=== PATIENT | male | born 1965 | race Caucasian/White ===

== ENCOUNTER → 2017-07-20 15:41 | Outpatient (CLI) | payer OTHER, SELFPAY ==
[2017-07-20 16:34] LABS: ALB/GLOB Ratio 1.1 RATIO (0.9-2.4); AST(SGOT) 18 U/L (15-37); Alanine Aminotransfer ALT/SGPT 25 U/L (16-61); Albumin, Serum 3.9 g/dL (3.2-5.0); Alkaline Phosphatase 45 U/L (45-117); Anion Gap 7 (5-15); BUN 23 mg/dL (7-18); BUN/Creat Ratio 29.1 RATIO (10-20); Chloride 103 mmol/L (98-107); Creatinine, Serum 0.79 mg/dL (0.70-1.30); EST Glomerular Filtration Rate 109 mL/min (>60); Est Glom Filt Rate - Afr Amer 132 mL/min (>60); Globulin 3.7 g/dL (2.2-4.2); Glucose 95 mg/dL (74-106); Protein, Total 7.6 g/dL (6.4-8.2); Sodium Level 139 mmol/L (136-145)
[2017-07-20 16:55] LABS: Microalbumin,Random Urine 15.5 mg/L (NO RANGE EST.); Microalbumin:Creatinine Ratio 17.2 mg/g CRE (<30 mg/g CRE)
[2017-07-22 15:00] LABS: PSA, Free 0.13 ng/mL; PSA, Free % 32.5 (.); PSA, Total Ultrasensitive 0.4 ng/mL (0.0-4.0)
== END ==
PROVIDERS: Family Provider Preventive Medicine Occupational Medicine; PCP Preventive Medicine Occupational Medicine; Visit Provider Preventive Medicine Occupational Medicine
DX: I10 Essential (primary) hypertension (principal); Z12.5 Encounter for screening for malignant neoplasm of prostate
CPT/HCPCS: 36415; 80053; 82043; 82570; 84153; 84154

== ENCOUNTER → 2017-08-09 13:11 | Outpatient (CLI) | payer OTHER, SELFPAY ==
--- NOTE | 2017-08-09 13:30 | RAD_ITS ---
STUDY: X-RAY - LEFT FOOT CLINICAL: Male, 52 years old. Follow-up stress fracture. TECHNIQUE: 3 view(s) of the foot. COMPARISON: 01/21/2017. FINDINGS: Previously described fracture of the proximal fourth metatarsal shaft shows nonunion with mild angulation and a more prominent fracture line indicating some distraction. There is some new bone formation. There is a new angulated nondisplaced fracture of the mid fifth metatarsal. Lateral view suggests some loss of plantar arch and there is a moderate plantar spur. Degenerative changes of the midfoot. 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 New mildly angulated nondisplaced fracture of the mid fifth metatarsal shaft. Electronically Signed: Alec Rutledge MD at 9:06 EDT , Service support ,
== END ==
PROVIDERS: Family Provider Preventive Medicine Occupational Medicine; PCP Preventive Medicine Occupational Medicine; Visit Provider Preventive Medicine Occupational Medicine
DX: M84.375G Stress fracture, left foot, subsequent encounter for fracture with delayed healing (principal)
CPT/HCPCS: 73630

== ENCOUNTER → 2018-08-08 14:48 | Outpatient (CLI) | payer OTHER, SELFPAY ==
[2018-08-08 16:11] LABS: ALB/GLOB Ratio 1.2 RATIO (0.9-2.4); AST(SGOT) 27 U/L (15-37); Alanine Aminotransfer ALT/SGPT 34 U/L (16-61); Albumin, Serum 4.2 g/dL (3.2-5.0); Alkaline Phosphatase 53 U/L (45-117); Anion Gap 7 (5-15); BUN 14 mg/dL (7-18); BUN/Creat Ratio 17.2 RATIO (10-20); Calcium,Total 8.9 mg/dL (8.5-10.1); Chloride 103 mmol/L (98-107); Creatinine, Serum 0.82 mg/dL (0.70-1.30); EST Glomerular Filtration Rate 105 mL/min (>60); Est Glom Filt Rate - Afr Amer 127 mL/min (>60); Globulin 3.6 g/dL (2.2-4.2); Glucose 92 mg/dL (74-106); Potassium 3.8 mmol/L (3.5-5.1); Protein, Total 7.8 g/dL (6.4-8.2); Sodium Level 141 mmol/L (136-145)
== END ==
PROVIDERS: Family Provider Preventive Medicine Occupational Medicine; PCP Preventive Medicine Occupational Medicine; Referring Provider Preventive Medicine Occupational Medicine; Visit Provider Preventive Medicine Occupational Medicine
DX: I10 Essential (primary) hypertension (principal)
CPT/HCPCS: 36415; 80053

== ENCOUNTER → 2018-11-09 10:01 | Outpatient (CLI) | payer OTHER, SELFPAY ==
--- NOTE | 2018-11-09 10:05 | RAD_ITS ---
STUDY: X-RAY CHEST REASON FOR EXAM: Male, 53 years old. Cough. Left-sided anterior rib pain. TECHNIQUE: PA and lateral views of the chest. COMPARISON: None. FINDINGS: Mild increased markings at the left lung base with blunting of the left costophrenic angle. This may represent the linear atelectasis. This is superimposed on mild scarring in both lungs. Normal size heart. Normal mediastinum and keiry. Normal visualized pulmonary arteries. There is atherosclerotic calcification of the aortic arch with tortuosity. There are diffuse degenerative changes of the visualized thoracic spine. Normal visualized ribs, clavicles, and shoulders. There is no demonstrated abnormality of the visualized soft tissue structures of the upper abdomen. RAD/Chest PA and Lateral IMPRESSION: Mild increased markings at the left lung base superimposed on chronic scarring. There is blunting of the left costophrenic angle. Follow-up is recommended. Electronically Signed: Vishnu Hatch, at 14:13 EDT , Service support ,
== END ==
PROVIDERS: Family Provider Preventive Medicine Occupational Medicine; PCP Preventive Medicine Occupational Medicine; Referring Provider Nurse Practitioner Family; Visit Provider Nurse Practitioner Family
DX: R05 Cough (principal)
CPT/HCPCS: 71046

== ENCOUNTER → 2019-02-09 09:56 | Outpatient (CLI) | payer OTHER, SELFPAY ==
--- NOTE | 2019-02-09 09:59 | RAD_ITS ---
STUDY: X-RAY CHEST REASON FOR EXAM: Male, 53 years old. Follow-up of prior abnormality TECHNIQUE: Two view of the chest were performed COMPARISON: 09 November 2018 FINDINGS: There are no regional opacities. There are coarsened interstitial markings. There is no pneumothorax, pulmonary edema, pleural effusions or cardiomegaly. Osseous structures are intact. There is no gas under the diaphragms. [ ] RAD/Chest PA and Lateral IMPRESSION: Abnormal interstitial markings, presumably interstitial disease. This appearance is nonspecific. Refer to pulmonary assessment and dedicated pulmonary protocol CT. Electronically Signed: Gio Alfaro, at 17:47 EDT Tel , Service support ,
== END ==
PROVIDERS: Family Provider Preventive Medicine Occupational Medicine; PCP Preventive Medicine Occupational Medicine; Referring Provider Preventive Medicine Occupational Medicine; Visit Provider Preventive Medicine Occupational Medicine
DX: J98.11 Atelectasis (principal)
CPT/HCPCS: 71046

== ENCOUNTER → 2019-02-23 07:18 | Outpatient (CLI) | payer OTHER, SELFPAY ==
--- NOTE | 2019-02-23 07:20 | CT_ITS ---
STUDY: CT CHEST WITHOUT CONTRAST REASON FOR EXAM: Male, 53 years old. Abnormal chest radiograph. RADIATION DOSAGE (If Supplied By Facility): CTDIvol = ( 14.80 ) mGy, DLP = ( 446.09 ) mGycm TECHNIQUE: Transaxial imaging was performed without the administration of intravenous contrast material. Individualized dose optimization techniques were used for this CT. COMPARISON: None. FINDINGS: Hyperinflation. Diffuse emphysematous changes with multiple subpleural blebs in both lungs worse in the upper lobes. There is also evidence of a bronchiectasis in the midportion of both lungs. Findings are in keeping with the predominantly right upper lobe scarring. This may be secondary to sarcoidosis or or chronic inhalational changes. There is no demonstrated pleural abnormality. There are calcifications of the coronary arteries. There are multiple small lymph nodes within the mediastinum, which are normal in size and morphology most compatible with reactive lymph hyperplasia. Normal hilar regions. Normal unenhanced pulmonary arteries. There is atherosclerotic calcification of the aortic arch with tortuosity and elongation of the aortic arch and descending thoracic aorta. There are multi-level degenerative changes of the thoracic spine. There is no demonstrated abnormality of the visualized upper abdomen. CT/Chest without Contrast IMPRESSION: Hyperinflation. Emphysematous changes with subpleural blebs worse in the upper lobes. Electronically Signed: Vishnu Hatch, at 10:48 EDT , Service support ,
== END ==
PROVIDERS: Family Provider Preventive Medicine Occupational Medicine; PCP Preventive Medicine Occupational Medicine; Referring Provider Preventive Medicine Occupational Medicine; Visit Provider Preventive Medicine Occupational Medicine
DX: R91.8 Other nonspecific abnormal finding of lung field (principal)
CPT/HCPCS: 71250

== ENCOUNTER 2019-03-01 09:52 | Emergency (ER) | payer OTHER, SELFPAY ==
[2019-03-01 09:55] VITALS: BP 175/113; PULSE 87; RESP 14; TEMP 36.3; O2SAT 98; BMI 32.5
[2019-03-01 10:09] VITALS: BP 194/105; PULSE 92; RESP 19; O2SAT 97
--- NOTE | 2019-03-01 10:37 | ED.DCSUM_ITS ---
- ER Visit Summary Date of Service: 03/01/19 Chief Complaint: Elevated blood pressure with history of hypertension History of Present Illness: The patient is a 53 M of hypertension currently on valsartan blood pressure medication and 60 mg daily. Normally runs 1 30-1 40 over around 80. He took his blood pressure yesterday because he was checking his son's blood pressure his was running 200 over about 110. He denies any symptoms. No headache, chest pain nor any shortness of breath. States he is feeling well. Physical Examination: Middle-aged male. No acute distress. Initial blood pressure 194/105. He does not look septic or toxic. He is in no distress. HEENT exam normal. Pupils round reactive light no facial droop. Lungs clear to auscultation bilaterally. Heart regular rhythm no murmur. Abdomen is soft and nontender. Normal bowel sounds no peritoneal signs. Extremities moves all 4. Calves are nontender. Equal symmetrical motor strength in both hands and feet. Neurologically is awake and alert with no focal motor deficits. NIH is 0. Test Results: None Emergency Department Course and Treatment: States typically his blood pressures while trolled with his current medication. We are going to hold off at this time making any changes. He will log his blood pressure twice daily follow-up with his primary care physician to see if they need to make any blood pressure medication adjustments or if they can stick with the current regime. Treatment Plan: Twice daily and follow-up with his PCP. Disposition: Discharge Impression: Acute on chronic hypertension This note was generated with [employer] dictation software. It may contain incorrect words, spelling, and punctuation that were not noted in review of the chart alfredoo r to signing ED Disposition - Plan for ED Patient: Referrals: Fazal España DO [Primary Care Provider] -
--- NOTE | 2019-03-01 10:40 | ED.DEP ---
ED Disposition - Plan for ED Patient: Disposition: Home or Assisted Living Instructions: HYPERTENSION, Established Referrals: Fazal España DO [Primary Care Provider] - As soon as possible Additional Instructions: Log your blood pressures twice daily over the next several days to 1 week. Call and follow-up with Dr. lowry next week and show him your blood pressure readings. At that time you when he can decide if you need to adjust your blood pressure medication, leave it alone or change the medication altogether.
[2019-03-01 10:43] VITALS: BP 185/110; PULSE 73; RESP 15; O2SAT 99
== END 2019-03-01 11:00 | disposition home or self-care (01) ==
LOC: ED 10:58
PROVIDERS: Emergency Provider Emergency Medicine; Family Provider Preventive Medicine Occupational Medicine; PCP Preventive Medicine Occupational Medicine
DX: I10 Essential (primary) hypertension (principal); J44.9 Chronic obstructive pulmonary disease, unspecified; Z72.0 Tobacco use
CPT/HCPCS: 99282

== ENCOUNTER 2019-03-28 20:45 | Emergency (ER) | payer OTHER, SELFPAY ==
[2019-03-28 20:46] VITALS: BP 155/111; PULSE 90; RESP 16; TEMP 36.3; O2SAT 97; BMI 31.7
--- NOTE | 2019-03-28 20:50 | RAD_ITS ---
STUDY: X-RAY - LEFT FOOT CLINICAL: Male, 53 years old. [place] a pop in the left foot while walking. History of 2 prior fractures. TECHNIQUE: 3 view(s) of the foot. COMPARISON: Left foot, August 09, 2017. FINDINGS: There is a plantar calcaneal spur. There is arthrosis of visualized subtalar, talonavicular, calcaneocuboid, tarsal and tarsometatarsal articulations. There is a healed fracture of the fifth tarsal. There is again seen a fracture of the base of the fourth metatarsal with osseous productivity suggesting healing. There remains a lucency in the possibility of an acute on chronic fracture cannot be ruled out. The first through third metacarpals are unremarkable. Normal metatarsophalangeal joint of the great toe. Normal tibial and fibular sesamoid bones. Normal interphalangeal joint of the great toe. Normal phalanges of the great toe. Normal second through fifth metatarsophalangeal joints. Normal interphalangeal joints and phalanges of the lesser toes. The soft tissue structures are unremarkable. RAD/Foot min 3 Views IMPRESSION: 1. Healed fracture of the fifth metacarpal. 2. Probable healed fracture fourth metacarpal. The possibility of acute on chronic fracture cannot be completely ruled out. 3. Degenerative changes of the foot.. Electronically Signed: Ortiz Castellano DO at 21:08 EDT Tel [phone], Service support ,
--- NOTE | 2019-03-28 23:00 | ED.DCSUM_ITS ---
- ER Visit Summary Date of Service: 03/28/19 Chief Complaint: Foot pain History of Present Illness: The patient is a 53 M with left foot pain. He was at work. He was walking felt a pop in his lateral left foot. Worse with use. Better with ice. He has a history of remote fractures to the area. Physical Examination: Inspection is unremarkable. He does have tenderness to his mid and distal fifth metatarsal region. Neurovascular intact. Test Results: X-rays show old fractures to the fourth and fifth metatarsals. Cannot rule out an acute fracture. Emergency Department Course and Treatment: Although the x-rays show old fractures, I reviewed them myself. There may be an underlying acute fracture. He does have pain at the area and did feel a pop while he was walking. I suspect he has a fracture, clinically. Patient declined a boot orthosis. He has them at home already. He will be treated with crutches. Nonweightbearing. He declined pain medicine. Rest ice elevate. Follow-up with podiatry and [facility]. He may return to work today. Nonweightbearing only until cleared by his doctors. Treatment Plan: As above Disposition: Discharge Impression: 1. Closed fracture left fifth metatarsal This note was generated with [employer] dictation software. It may contain incorrect words, spelling, and punctuation that were not noted in review of the chart prior to signing ED Disposition - Plan for ED Patient: Referrals: Fazal España DO [Primary Care Provider] -
--- NOTE | 2019-03-28 23:05 | ED.DEP ---
ED Disposition - Plan for ED Patient: Instructions: FRACTURE, Foot Referrals: [facility] [GROUP OF PHYSICIANS] - Carlin Skaggs DPM [STAFF PHYSICIAN] -
== END 2019-03-28 23:28 | disposition home or self-care (01) ==
PROVIDERS: Emergency Provider Emergency Medicine; Family Provider Preventive Medicine Occupational Medicine; PCP Preventive Medicine Occupational Medicine
DX: S92.352A Displaced fracture of fifth metatarsal bone, left foot, initial encounter for closed fracture (principal); X58.XXXA Exposure to other specified factors, initial encounter; Y93.01 Activity, walking, marching and hiking; Y92.89 Other specified places as the place of occurrence of the external cause; Y99.0 Civilian activity done for income or pay; I10 Essential (primary) hypertension
CPT/HCPCS: 73630; 99283

== ENCOUNTER → 2019-09-10 10:47 | Outpatient (CLI) | payer OTHER, SELFPAY ==
[2019-09-10 11:07] LABS: Hematocrit 42.3 % (40-54); Hemoglobin 13.6 g/dL (13.0-16.5); Mean Corp Hgb Conc 32.2 g/dL (32-36); Mean Corpuscular Hgb 29.6 pg (27.0-32.0); Mean Platelet Vol. 9.3 fl (6.2-12.0); Platelet Count 286 K/mm3 (150-450); RBC Distribution Width CV 12.3 % (11.6-14.6); RBC Distribution Width SD 41.1 fl (35.1-43.9); White Blood Count 7.1 K/mm3 (4.4-11.0)
[2019-09-10 11:37] LABS: ALB/GLOB Ratio 1.1 RATIO (0.9-2.4); AST(SGOT) 23 U/L (15-37); Alanine Aminotransfer ALT/SGPT 25 U/L (16-61); Albumin, Serum 3.9 g/dL (3.2-5.0); Alkaline Phosphatase 48 U/L (45-117); Anion Gap 5 (5-15); BUN 25 mg/dL (7-18); BUN/Creat Ratio 31.1 RATIO (10-20); Calcium,Total 9.1 mg/dL (8.5-10.1); Chloride 105 mmol/L (98-107); Cholesterol 240 mg/dL (200); EST Glomerular Filtration Rate 106 mL/min (>60); Est Glom Filt Rate - Afr Amer 129 mL/min (>60); Globulin 3.7 g/dL (2.2-4.2); Glucose 100 mg/dL (74-106); High Density Lipoprotein 42 mg/dL; Potassium 4.2 mmol/L (3.5-5.1); Protein, Total 7.6 g/dL (6.4-8.2); Sodium Level 137 mmol/L (136-145); Triglycerides 298 mg/dL; Very Low Density Lipoprotein 60 mg/dL (5-40)
== END ==
PROVIDERS: PCP Preventive Medicine Occupational Medicine; Referring Provider Nurse Practitioner Primary Care; Visit Provider Nurse Practitioner Primary Care
DX: I10 Essential (primary) hypertension (principal)
CPT/HCPCS: 36415; 80053; 80061; 85027

== ENCOUNTER → 2019-11-13 10:16 | Outpatient (CLI) | payer OTHER, SELFPAY ==
[2019-11-13 11:26] LABS: ALB/GLOB Ratio 1.1 RATIO (0.9-2.4); AST(SGOT) 19 U/L (15-37); Alanine Aminotransfer ALT/SGPT 28 U/L (16-61); Albumin, Serum 4.3 g/dL (3.2-5.0); Alkaline Phosphatase 55 U/L (45-117); Anion Gap 6 (5-15); BUN 18 mg/dL (7-18); BUN/Creat Ratio 19.8 RATIO (10-20); Calcium,Total 9.3 mg/dL (8.5-10.1); Chloride 101 mmol/L (98-107); Cholesterol 198 mg/dL (200); Creatinine, Serum 0.91 mg/dL (0.70-1.30); EST Glomerular Filtration Rate 93 mL/min (>60); Est Glom Filt Rate - Afr Amer 112 mL/min (>60); Globulin 3.8 g/dL (2.2-4.2); Glucose 96 mg/dL (74-106); High Density Lipoprotein 43 mg/dL; Potassium 4.6 mmol/L (3.5-5.1); Protein, Total 8.1 g/dL (6.4-8.2); Sodium Level 136 mmol/L (136-145); Triglycerides 323 mg/dL; Very Low Density Lipoprotein 65 mg/dL (5-40)
== END ==
PROVIDERS: PCP Preventive Medicine Occupational Medicine; Referring Provider Nurse Practitioner Primary Care; Visit Provider Nurse Practitioner Primary Care
DX: E78.5 Hyperlipidemia, unspecified (principal)
CPT/HCPCS: 36415; 80053; 80061

== ENCOUNTER → 2020-06-05 12:29 | Outpatient (CLI) | payer OTHER, SELFPAY ==
[2020-06-05 14:48] LABS: ALB/GLOB Ratio 1.1 RATIO (0.9-2.4); AST(SGOT) 17 U/L (15-37); Alanine Aminotransfer ALT/SGPT 25 U/L (16-61); Albumin, Serum 4.4 g/dL (3.2-5.0); Alkaline Phosphatase 63 U/L (45-117); Anion Gap 4 (5-15); BUN 17 mg/dL (7-18); BUN/Creat Ratio 18.6 RATIO (10-20); Calcium,Total 9.2 mg/dL (8.5-10.1); Chloride 103 mmol/L (98-107); Cholesterol 197 mg/dL (200); Creatinine, Serum 0.91 mg/dL (0.70-1.30); EST Glomerular Filtration Rate 92 mL/min (>60); Est Glom Filt Rate - Afr Amer 111 mL/min (>60); Globulin 3.9 g/dL (2.2-4.2); Glucose 86 mg/dL (74-106); High Density Lipoprotein 66 mg/dL; PSA,Total - Annual Screen 0.62 ng/mL (0.00-4.00); Potassium 4.1 mmol/L (3.5-5.1); Protein, Total 8.3 g/dL (6.4-8.2); Sodium Level 137 mmol/L (136-145); Triglycerides 107 mg/dL; Very Low Density Lipoprotein 21 mg/dL (5-40)
== END ==
PROVIDERS: PCP Preventive Medicine Occupational Medicine; Referring Provider Nurse Practitioner Primary Care; Visit Provider Nurse Practitioner Primary Care
DX: I10 Essential (primary) hypertension (principal); E78.5 Hyperlipidemia, unspecified; Z12.5 Encounter for screening for malignant neoplasm of prostate
CPT/HCPCS: 36415; 80053; 80061; 84153; G0103

== ENCOUNTER 2020-09-09 12:02 | Observation (INO) | payer OTHER, SELFPAY ==
[2020-09-09] VITALS (12 sets, daily range): BP systolic 153–169; BP diastolic 75–103; PULSE 68–85; RESP 14–16; TEMP 36.5–36.6; O2SAT 96–99; BMI 29.7; BMI 29.8
--- NOTE | 2020-09-09 11:51 | EKG12_ITS ---
Test Reason : ELEVATED TROPONIN Blood Pressure : / mmHG Vent. Rate : 071 BPM Atrial Rate : 071 BPM P-R Int : 156 ms QRS Dur : 088 ms QT Int : 382 ms P-R-T Axes : 022 -21 022 degrees QTc Int : 415 ms Normal sinus rhythm Normal ECG No previous ECGs available Confirmed by NATHEN BAXTER, KELLY ([id number]), loan expeditor TIFFANY MARQUEZ ([id number]) on 09/10/2020 1:12:45 PM Referred By: ROMEO Confirmed By:KELLY SENA MD
--- NOTE | 2020-09-09 12:37 | CHAPLAIN ---
Type of Pastoral Visit _x__ Initial Visit ___ Follow-up Visit ___ On-call Visit ___ General Patient Visit ___ Spiritual Assessment ___ Family Conference ___ Bereavement ___ Rapid Response ___ Code Blue ___ Other (describe below) Pastoral Care Referral From _x__ Patient ___ Family ___ Nurse ___ Physician ___ Appeals Coordinator ___ Human Resource Intern ___ Other (describe below) Sacrament/Intervention _x__ Active listening ___ Anointing ___ Restoration ___ Bereavement ___ Communion ___ Sigrid exploration ___ ___ Life review ___ Prayer ___ Reconciliation ___ Sacrament of Sick _x__ Supportive presence ___ Wedding ___ Other (describe below) Pastoral Comments
--- NOTE | 2020-09-09 13:39 | CON.PCM_ITS ---
Problem List (1) Abnormal cardiac enzyme level Status: Acute (2) HTN (hypertension) Status: Chronic Qualifiers: Hypertension type: essential hypertension Qualified Code(s): I10 - Essential (primary) hypertension (3) HLD (hyperlipidemia) Status: Chronic Qualifiers: Hyperlipidemia type: unspecified Qualified Code(s): E78.5 - Hyperlipidemia, unspecified Reason for Consult Date of Consultation: 09/09/20 History of Present Illness: The patient is a 55 year old male with a past medical history of hypertension hyperlipidemia who is referred for evaluation of abnormal troponin I levels. 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 He states he has been following with his PCP for his hypertension and hyperlipidemia. He notes for the most part his medical issues have been under good control. He states recently he developed an upper respiratory tract infection/nasal congestion. He was using [id number] medications for this including DayQuil. He noted that he was feeling somewhat flushed and had an uncomfortable feeling in his chest. He began checking his blood pressures at home which he states normally are under good control, and noted both his systolic and diastolic blood pressures were elevated. He states he took his home antihypertensive regimen, waited for a while, and rechecked his blood pressures. They were even higher. Thus he elected to present to the nearest emergency department for further evaluation. He presented to the [facility] emergency department. He was subsequently brought into their institution for concerns of a hypertensive urgency/emergency. His medications were adjusted to bring his blood pressure under better control which they report it did improve. He underwent cardiac enzyme levels with high-sensitivity TSH levels which were elevated and continued to elevate. He had an ECG which demonstrated sinus rhythm with no acute ECG changes. He was being scheduled for an exercise tolerance test/imaging study, however, based upon his elevated troponin levels this was canceled and he was recommended for transfer for further evaluation with diagnostic cardiac catheterization. Was also evaluated for COVID-19 which is test was reported as negative. The patient states that he did sense an uncomfortable sensation in his chest. He attributed this to his recent URI. He states usually when he has been active he has not had any ongoing chest discomfort. He denies orthopnea or PND or peripheral pitting edema. There has been no near syncope or syncope. He did have an ECG performed at [facility]. He was noted to have sinus rhythm with no acute ECG changes. Past Medical History Allergies/Adverse Reactions: Allergies BEE STINGS Allergy (Uncoded 03/28/19 20:49) Anaphylaxis Home Medications: Ambulatory Orders Medication Instructions Recorded Celecoxib [Celebrex] 1 tab PO DAILY 03/28/19 Esomeprazole Sodium 20 mg IV DAILY 03/28/19 Valsartan [Diovan] 320 mg PO DAILY 03/28/19 traZODone [Desyrel] 50 mg PO QHS 03/28/19 Amlodipine [Norvasc] 10 mg PO DAILY 09/09/20 Aspirin [Aspirin, Baby] 81 mg PO DAILY 09/09/20 Atorvastatin Calcium [Lipitor] 20 mg PO QHS 09/09/20 Fluticasone 0.05% [Flonase Nasal 1 spray NASAL DAILY 09/09/20 [place]] Loratadine 10 mg PO DAILY 09/09/20 Multiple Vitamin 1 tablet PO DAILY 09/09/20 Past Medical History (Chronic Problems): Chronic Problems HTN (hypertension) (Chronic) HLD (hyperlipidemia) (Chronic) Smoking Status: Former smoker Alcohol: None Drugs: None Review of Systems - Review of Systems General: Denies: Fever, Night Sweats, Fatigue HEENT: Reports: Sinus Congestion Cardiovascular: Reports: Chest Discomfort. Denies: Shortness of Breath, Orthopnea, PND, Peripheral Edema, Palpitations, Lightheadedness, Dizziness, Near Syncope, Syncope Respiratory: Denies: Cough, Sputum Production, Hemoptysis Gastrointestinal: Denies: Hematemesis, Hematochezia, Melena Genitourinary: Denies: Dysuria, Hematuria Skin: Denies: Rash Subjectve: This is a relatively healthy-appearing 55-year-old white male who appears to be lying supine in no acute distress. Objective: Vital Signs Temp Pulse Resp BP Pulse Ox 97.8 F 73 16 169/100 H 98 09/09/20 11:05 09/09/20 12:11 09/09/20 11:05 09/09/20 11:05 09/09/20 11:05 Oxygen Delivery Method Room Air Weight: 207 lb 10.807 oz Body Mass Index (BMI) 29.7 General: Awake, Alert, Oriented x 3, Cooperative, No Acute Distress HEENT: Atraumatic, Normocephalic, PERRL, EOMI, Sclera Non Icteric Neck: Supple, Good ROM, No JVD Lungs: Clear to auscultation Cardiovascular: Regular Rhythm, Normal S1, Normal S2 Murmur Murmur: Grade 2/6, Soft, Mid Systolic, LLSB Vascular: No Carotid Bruits Abdomen: Bowel Sounds Present, Soft Extremities: No Cyanosis, No Clubbing, No edema Neurological: No Focal Motor or Sensory Deficit Psych/Mental Status: Appropriate Rhythm: Sinus rhythm EKG: Sinus rhythm Assessment/Plan 1. Abnormal cardiac enzymes / NSTEMI The patient has abnormal troponin I [id number] troponin I levels- which have increased during his hospitalization running for non-ST segment elevation [place]. Is unclear whether this is a type I event or a type II event secondary to etiology such as his hypertension. This does raise concern as to whether or not the etiology is related to his recent hypertensive urgency/emergency or whether or not he has underlying CAD. Thus far he has not been diagnosed with any thromboembolic disease, MANAGER AUTOMOTIVE event, renal insufficiency, or infectious disease related issues that would contribute to such findings. He has been monitored. His cardiac rhythm has remained sinus. His ECG is demonstrated no acute changes. An echocardiogram has been requested to evaluate his left ventricular wall thickness, motion, and systolic function. In the interim he was requested to be transferred to this institution for further evaluation with diagnostic cardiac catheterization. The procedure and risks of been discussed with him. He was agreeable to this approach. 2. Hypertension The patient has a longstanding history of hypertension. He states for the most part it has been well controlled until recently. At the moment he has required adjustment of his medications. His blood pressures have come under better control. He does not recall going through any type of evaluation for secondary etiologies of hypertension in the past. It may not be unreasonable as his clinical course progresses to consider further evaluation for secondary causes above and beyond laboratory studies which would include for example a renal artery duplex study to evaluate for any obvious renal artery related disease that would be contributing to his hypertension. 3. Hyperlipidemia He will continue evaluation and care and medical management as deemed appropriate. Comment: The patient's case has been discussed and reviewed with the patient. This note was generated using a voice recognition system and there may be incorrect words, spelling or punctuation that were not noted when reviewing the office note prior to saving. Procedure Criteria Procedure Type: Elective COVID Risk Discussion: The surgeon/proceduralist and patient have discussed in detail the risk of exposure to and/or potential harm posed by the COVID-19 virus with having a surgery/procedure at this time versus the risk of delaying the surgery/procedure. It is not possible to know either the risk of delaying the surgery or procedure or chance of getting an infection with perfect accuracy, but a joint decision was made between the patient and the surgeon/proceduralist to proceed at this time with the scheduled surgery/procedure as indicated on the consent form.
--- NOTE | 2020-09-09 13:42 | PCM.HP.STD ---
History of Present Illness Date of Admission: 09/09/20 Mr. Hall is a 55 year old [employer] employee at [employer] [facility] [employer] with a past medical history of hypertension, hyperlipidemia, GERD, seasonal allergies, OA, history of tobacco abuse and insomnia who presented to [facility] on 09/08/2020 for evaluation related to elevated blood pressure and chest pain. He reported at that time he had been in his normal state of health until approximately 1 week ago when he started having upper respiratory congestion and rhinorrhea. He purchased DayQuil and had been taking it fairly consistent since that time. His upper respiratory symptoms were improving but he continued to have some nasal congestion. A Covid test was done there and was negative. He states that while he was at home he became flushed, had chest pressure/tightness and he took his blood pressure and and was noted to be elevated with a systolic blood pressure greater than 180. He became concerned regarding his blood pressure and presented to the emergency department in [place] at that time. Upon his arrival there his blood pressure was 196/115 and his EKG showed no acute ST elevation or depression. His CBC and CMP were unremarkable. He was medicated with IV labetalol with some improvement to a blood pressure of 165/110 but after sometimes had blood pressure began to creep back up and was 192/105. He was admitted for observation. He was placed on telemetry monitoring and his symptoms resolved. Alterations were made in his antihypertensives and his blood pressure did improve however was not normalized. Serial high-sensitivity troponins were obtained and were elevated throughout his stay but had trended down. On the morning of his admission here his last serial troponin trended up from where it was previously. A stress test had been planned but was canceled with his troponin elevation and EKG was repeated. His repeat EKG again showed no ST-T wave elevation or depression and he remained in sinus rhythm. He remained chest free. At that time he was given 325 mg of chewable aspirin and his case was discussed with Dr. Spence from cardiology here at [facility] and he requested that the patient be given 180 mg of Brilinta and be transferred for further cardiology work-up. Upon arrival here the patient remains symptom-free. He states he is overall feeling better than when he presented at [facility]. I discussed the case with cardiology and the plan would be to take him to the [facility] later today as the patient remains n.p.o. [] Past Medical History Allergies BEE STINGS Allergy (Uncoded 03/28/19 20:49) Anaphylaxis Home Medications: Ambulatory Orders Medication Instructions Recorded Celecoxib [Celebrex] 1 tab PO DAILY 03/28/19 Esomeprazole Sodium 20 mg IV DAILY 03/28/19 Valsartan [Diovan] 320 mg PO DAILY 03/28/19 traZODone [Desyrel] 50 mg PO QHS 03/28/19 Amlodipine [Norvasc] 10 mg PO DAILY 09/09/20 Aspirin [Aspirin, Baby] 81 mg PO DAILY 09/09/20 Atorvastatin Calcium [Lipitor] 20 mg PO QHS 09/09/20 Fluticasone 0.05% [Flonase Nasal 1 spray NASAL DAILY 09/09/20 Ryan] Loratadine 10 mg PO DAILY 09/09/20 Multiple Vitamin 1 tablet PO DAILY 09/09/20 Smoking Status: Former smoker Review of Systems Constitutional: Denies: Anorexia, Chills, Fever, Night Sweats, Malaise, Weakness, Weight Change, Fatigue Eyes: Denies: Blurred vision, Cataracts, Conjunctivae Inflammation, Double vision, Drainage, Eyelid Inflammation, Pain, Redness, Vision Change HEENT: Reports: Nasal Congestion, Post Nasal Drip, Sinus Congestion, Sinus Drainage. Denies: Difficulty Hearing, Difficulty Swallowing, Head Aches, Nasal bleeding, Sore Throat, Visual Changes Cardiovascular: Reports: Chest Pain - Now resolved, Chest Tightness - Now resolved. Denies: Claudication, Chest Pressure, Edema, Heaviness, Light Headedness, Orthopnea, Palpitations, Paroxysmal Noc. Dyspnea, Syncope Respiratory: Denies: Cough, Hemoptysis, Pleuritic Pain, Shortness of Breath, Shortness of breath at rest, Shortness of breath upon exertion, Sputum production, Wheezing Gastrointestinal: Denies: Abdominal Pain, Constipation, Diarrhea, Dyspepsia, Hematemesis, Hematochezia, Nausea, Melena, Vomiting Genitourinary: Denies: Dysuria, Frequency, Hematuria, Hesitancy, Incontinence, Nocturia, Retention, Urgency Musculoskeletal: Denies: Back Pain, Joint Pain, Joint stiffness, Joint swelling, Joint Tenderness, Neck Pain Skin: Denies: Dryness, Jaundice, Lesions, Pruritis, Rash, Skin Changes, Wounds Neurological: Denies: Balance problems, Blurred vision, Double vision, Change in Speech, Slurred speech, Confusion, Difficulty swallowing, Focal weakness, Headaches, Incoordination, Numbness, Tingling, Tremor, Seizures Psychiatric: Reports: - - Insomnia. Denies: Anxiety, Depression Endocrine: Denies: Change in Body Habitus, Polydipsia, Polyuria Hematologic/ Lymphatic: Denies: Adenopathy, Anemia, Easy Bruising, Petechiae, Purpura VTE Information - Inpt Only VTE Present on Admission: No VTE Mechan Device Prophylaxis: None VTE Pharm Prophylaxis ordered?: Yes - Physical Exam Vitals/I&O's: Vital Signs Temp Pulse Resp BP Pulse Ox 97.8 F 73 16 169/100 H 98 09/09/20 11:05 09/09/20 12:11 09/09/20 11:05 09/09/20 11:05 09/09/20 11:05 Oxygen Delivery Method Room Air Weight: 94.2 kg Body Mass Index (BMI) 29.7 General: Alert, Oriented x3, Cooperative, No apparent distress, Well developed, Well nourished, - - Middle-aged white male who appears stated age, lying in bed, appears comfortable, nursing at bedside, nontoxic HEENT: Atraumatic, PERRLA, EOMI, Normocephalic, EAC Clear Oral: Moist Mucosa, No Gingival or Mucosal Lesions/ Ulcerations, - - Poor dentition, no thrush, Mallampati 2 Neck: Supple, No JVD, Negative Carotid Bruits, Trachea Midline, Thyroid Normal Size and Texture Lungs: Clear to auscultation, Normal air movement, No rhonchi, No wheeze, No rales Cardiovascular: Regular rate, Regular Rhythm, Normal S1, Normal S2, No murmurs, No Ectopic Activity, Gallops - S4, No rub noted Abdomen: Bowel Sounds Present, Soft, Non Tender, Non-Distended, No Hepato-splenomegaly, No hernias noted Extremities: No clubbing, No cyanosis, No edema, Capillary Refill Less than 3 Seconds, Peripheral Pulses Normal Skin: No rashes, No breakdown Musculoskeletal: No Tenderness to Palpation of Joints or Extremities, No Muscle Wasting Lymphatic: No Cervical, Supraclavicular, or Inguinal Adenopathy Neurological: Cranial nerves II-XII grossly intact, Deep Tendon Reflexes 2+/4 and Symmetrical, Neuro grossly intact, Motor Exam 5/5 strength throughout, Muscle tone normal, Coordination normal Psych/Mental Status: Normal Affect, Appropriate, - - Extremely pleasant Current Medications Acetaminophen (Acetaminophen 325 Mg Tablet) 650 mg PO Q6H PRN PRN PRN Reason: Pain Score 1-10/Temp > 100.7 F Al Hydroxide/Mg Hydroxide (Mag Hydrox/Al Hydrox/Simeth 30 Ml Udc) 30 ml PO Q6H PRN PRN PRN Reason: Gastric Burning Albuterol Sulfate (Albuterol 2.5 Mg/3 Ml Vial.Neb.) 2.5 mg INHALATION Q2H PRN PRN PRN Reason: SOB/Wheezing Amlodipine Besylate (Amlodipine 10 Mg Tablet) 10 mg PO DAILY [facility] Aspirin (Aspirin E.C. 81 Mg Tablet) 81 mg PO DAILY@0800 TEJAL Atorvastatin Calcium (Atorvastatin Calcium 80 Mg Tablet) 80 mg PO QHS [facility] Carvedilol (Carvedilol 6.25 Mg Tablet) 6.25 mg PO BID [facility] Enoxaparin Sodium (Enoxaparin 40 Mg/0.4 Ml Syringe) 40 mg SC DAILY [facility] Sodium Chloride () 1,000 mls @ 0 mls/hr IV .Q0M [facility] Losartan Potassium (Losartan Potassium 100 Mg Tablet) 100 mg PO DAILY [facility] Melatonin (Melatonin 3 Mg Tablet) 3 mg PO QHS PRN PRN PRN Reason: INSOMNIA Nitroglycerin (Nitroglycerin (Inpatient Use) 0.4 Mg Tab.Subl) 0.4 mg SL Q5M PRN PRN Reason: CARDIAC/CHEST PAIN Ondansetron HCl (Ondansetron 4 Mg/2 Ml Vial) 4 mg IV Q8H PRN PRN PRN Reason: NAUSEA/VOMITING Pantoprazole Sodium (Pantoprazole Sodium 40 Mg Tablet) 40 mg PO DAILY TEJAL Senna/Docusate Sodium (Senna/Docusate Sodium 1 Tablet) 2 tablet PO BID PRN PRN PRN Reason: Constipation Sodium Chloride (0.9% Saline Lock 10 Ml Syringe) 10 - 40 ml IV UD PRN PRN Reason: SALINE FLUSH Throat Lozenges (Benzocaine/Menthol 1 Lozenge) 1 lozenge MUCOUS MEM Q2H PRN PRN PRN Reason: SORE THROAT Assessment/Plan Hypertensive emergency -Blood pressure is high as 200 systolic and 115 diastolic at outside hospital -On admission here BP was still elevated at 169/100 -Continue ARB with losartan 100 mg daily -Continue amlodipine 10 mg daily -Add Coreg 6.25 mg twice daily -Okay to leave systolic blood pressure between 140 and 160 for today and likely uptitrate medications in the next 24 hours Troponin elevation -Continue aspirin -Troponin were cycled and were 133--> 126.4--> 126--> 171.3 with normal being 76 and below -Brilinta 180 mg given at outside hospital prior to admission -We will hold for cardiac catheterization to dose further -[facility] today -Cardiology consulted Hypertension -See above Hyperlipidemia -Start Lipitor 80 mg daily -He had a cholesterol panel done here on 06/05/2020 that showed a total cholesterol 197, and LDL of 110, and HDL of 66 -Had been on lovastatin 20 mg at at bedtime -Revert back to this depending on results of cardiac catheterization GERD -Continue PPI Insomnia -Continue trazodone OA -Hold Celebrex as this could be contributing to his hypertension Tobacco abuse -Remote history of smoking -Currently chews tobacco -Nicotine patch 14 mg daily -Recommend cessation DVT prophylaxis -Lovenox daily CODE STATUS -Full code Inpatient E&M: 00149 Init Hosp L3
--- NOTE | 2020-09-09 13:43 | CASEMGMT ---
According the [employer] website, the following are in-network tertiary facilities: [facility], [facility], [facility], [facility], [facility], [facility], [place], [facility], and . Demetrio MCKEON CM
--- NOTE | 2020-09-09 15:01 | ECHOCS_ITS ---
Reason For Study: HTN Procedure This was a 2D Doppler, Color Flow transthoracic echocardiogram. The exam was of adequate technical quality. Exam performed portable in patient room. Left Ventricle Normal LV size. Sigmoid septum. Left ventricular systolic function is normal. The estimated ejection fraction is 70 %. Transmitral doppler flow suggestive of impaired relaxation of left ventricle. No regional wall motion abnormalities noted. Right Ventricle Normal RV size. Normal systolic function. Atria Normal left atrium. Normal right atrium. No doppler evidence for ASD. Mitral Valve There is no mitral annular calcification. Mild focal mitral valve calcification of the anterior leaflet. Trivial mitral valve insufficiency. Tricuspid Valve Normal tricuspid valve. Trivial tricuspid valve insufficiency. Unable to estimate RV systolic pressure due to insufficient tricuspid regurgitant envelope. Aortic Valve Trisinus/trileaflet aortic valve. Mild focal aortic valve calcification. Trivial aortic valve insufficiency. Pulmonic Valve The pulmonic valve is not well visualized. Great Vessels Normal sized aortic root. Pericardium/Pleural No pericardial effusion. MMode/2D Measurements & Calculations LVIDd: 3.5 cm IVSd: 1.6 cm LVOT diam: 2.0 cm LVIDs: 2.6 cm LVPWd: 1.2 cm LVOT area: 3.3 cm2 RVDd: 3.5 cm FS: 25.1 % Ao root diam: 3.6 cm LAV(MOD-bp): 65.5 ml LVAd ap4: 35.2 cm2 LAV(MOD-bp) Indexed: 30.9 ml/m2 EDV(MOD-sp4): 103.3 ml LAV(MOD-sp2): 95.7 ml EDV(sp4-el): 108.6 ml LAV(MOD-sp4): 32.5 ml LVAs ap4: 18.9 cm2 ESV(MOD-sp4): 39.7 ml ESV(sp4-el): 40.0 ml EF(MOD-sp4): 61.6 % EF(sp4-el): 63.1 % SV(MOD-sp4): 63.6 ml SV(sp4-el): 68.6 ml LA A4 area: 13.6 cm2 LA dimension(2D): 3.5 cm RA A4 area: 13.1 cm2 Time Measurements MV dec time: 0.35 sec Doppler Measurements & Calculations MV E max diego: 63.9 cm/sec Lat Peak E' Diego: 7.7 cm/sec Med Peak E' Diego: 6.7 cm/sec MV A max [place]: 91.8 cm/sec E/E' lat: 8.3 E/E' med: 9.5 MV E/A: 0.70 Ao V2 max: 180.4 cm/sec LV V1 max: 148.6 cm/sec PA V2 max: 115.4 cm/sec Ao max P.0 mmHg LV V1 max P.8 mmHg EDUARDO(V,D): 2.7 cm2 ECHO/Echo Complete W/ Contrast Interpretation Summary Left ventricular systolic function is normal. The estimated ejection fraction is 70 %. Sigmoid septum. Mild focal mitral valve calcification of the anterior leaflet. Trivial mitral valve insufficiency. Trivial tricuspid valve insufficiency. Mild focal aortic valve calcification. Trivial aortic valve insufficiency. Unable to estimate RV systolic pressure due to insufficient tricuspid regurgita nt envelope. Transmitral doppler flow suggestive of impaired relaxation of left ventricle Ordering Physician: Bhumi Bishop Referring Physician: JOSIE MXAWELL Performed By: Janae Huang, KEENA, RVT
--- NOTE | 2020-09-09 15:05 | CL.D_ITS ---
Patient Name: GRECIA LUIS Study Date: 09/09/2020 Performing: Fred Spence MD Ht: 70.07 inches 178 cm : 1965 Wt: 207.23 lbs 94 kg Age: 55 Gender: male BSA: 2.12 PROCEDURE(S) PERFORMED [id number]/LV CLINICAL PROFILE AND INDICATIONS Indications: ACS <= 24 hrs, Suspected CAD Heart Failure: None Angina Classification Anginal Classification w/in 2 Weeks: CCS IV (chest discomfort with rest) CAD Presentations: Non-STEMI. CONCLUSIONS Elevated Left Ventricular End Diastolic Pressure (mild) Normal LV size, wall motion,and systolic function LVEF: by LV gram 65 % [place] Multivessel CAD RECOMMENDATIONS Risk factor modification Medical therapy DESCRIPTION OF PROCEDURE The patient arrived to the procedure lab. The risks and benefits of the procedure as well as a full d escription of our services here and current unavailability of surgical backup were fully explained to the patient and/or their significant other prior to the catheterization. The Timeout was completed, verifying the correct patient and procedure. The patient's procedural site was prepped and draped in the usual fashion. Local anesthetic was given subcutaneously to right radial region with Lidocaine 2% . Using a modified Seldinger technique, arterial access was obtained via the right radial artery, a 6 Fr sheath was inserted. Left Coronary Artery selective angiography was performed in multiple views u sing a 5 Fr. 4.0 [place] catheter. Right Coronary Artery selective angiography was then performed in mu ltiple views using a 5 Fr. 4.0 [place] catheter. Left Ventriculography was performed in [place] projection using a 5 Fr. Pigtail catheter. LV to AO pullback pressures were then recorded.The arterial sheath was pulled and a TR Band was applied for hemostasis CORONARY ANGIOGRAPHY DOMINANCE: Right Dominant LEFT HEART ASSESSMENT Left Ventricular Ejection Fraction: by LV Gram 65 % Normal LV wall motion Elevated Left Ventricular End Diastolic Pressure LVEDP: 14 mmHg LEFT MAIN: Angiographically normal LEFT ANTERIOR DESCENDING ARTERY: Mild luminal irregularities DIAGONAL 1: Proximal - bifurcating branch: small: proximal: 25 % Stenosis CIRCUMFLEX ARTERY: Angiographically normal RIGHT CORONARY ARTERY: Mild luminal irregularities MID RCA: smooth: eccentric: 25 % Stenosis DISTAL RCA: smooth: eccentric: 25 % Stenosis AORTIC ROOT: Angiographically normal COMPLICATIONS No Complications PROCEDURE MEDICATIONS Fentanyl 50 mcg IV Versed 1 mg IV Oxygen: 2 L/min via nasal cannula Heparin diluted in 23cc Heparinized saline. Patient given 10cc IA of this solution. 09/09/2020 14:30: 54 Verapamil 2.5mg, Ntg 100mcgs, 2000 units of Heparin diluted in 23cc Heparinized saline. Patient give n 10cc IA of this solution. 09/09/2020 14:30:54 SUMMARY OF HEMODYNAMIC DATA Time AIR REST ECG 14:05:37 AO 150/94 (118) SA 14:31:09 LV 192/-19, 18 14:43:16 LV 173/-19, 14 14:43:24 LV 167/-12, 7 14:44:16 LVp 174/-14, 17 14:44:22 AOp 169/90 (125) 14:44:27 AO 172/90 (124) 14:44:31 Signed By Fred Spence MD On 09/09/2020 15:04:51 Ferd Spence MD
[2020-09-09] MEDS: 0.9% Normal Saline 1,000 ML 75 ML IV (16:31)
[2020-09-09] MEDS: Acetaminophen 325 MG Tablet 650 MG PO (18:02)
[2020-09-09] MEDS: Atorvastatin Calcium 80 MG Tablet PO (21:26)
[2020-09-09] MEDS: traZODone 50 MG Tablet PO (21:26)
[2020-09-09] MEDS: Carvedilol 12.5 MG Tablet PO (21:26)
[2020-09-10] MEDS: MELATONIN 3 MG TABLET PO (00:06)
[2020-09-10] MEDS: Acetaminophen 325 MG Tablet 650 MG PO ×2 (00:06→09:08)
[2020-09-10 02:52] VITALS: PULSE 66
[2020-09-10 03:20] VITALS: BP 118/72; PULSE 74; RESP 12; TEMP 36.7; O2SAT 95
--- NOTE | 2020-09-10 05:55 | RDU_ITS ---
Reason For Study: HTN Right Renal Artery Left Renal Artery Right renal artery ostium 70.1/28.3 Left renal artery ostium 108.5/42.7 RSV/EDV. PSV/EDV. Right renal artery proximal Left renal artery proximal PSV/EDV 63.6/21.7 PSV/EDV. 105.8/38.8 . Right renal artery mid 61.6/17.3 Left renal artery mid 101.8/36.1 PSV/EDV. PSV/EDV . Right renal artery distal 84.4/24.8 Left renal artery distal 81.7/29.4 PSV/EDV. PSV/EDV. Right RAR 1.36. Left RAR 1.74. Right Renal Parenchyma Left Renal Parenchyma Upper Pole Medula 36/15.1 PSV/EDV. Left upper pole medulla 36.8/13.4 Right upper pole medulla EDR 0.42 . PSV/EDV . Right upper pole medulla R.I. Left upper pole medulla EDR 0.37 . 0.58 . Left upper pole medulla R.I. 0.63 . Upper [place] Cortx 28/10.2 PSV/EDV. UP Cortex 23.9/7.9 PSV/EDV. Right upper pole cortex EDR 0.36 . Left upper pole cortex EDR 0.33 . Right upper pole cortex R.I. 0.64 . Left upper pole cortex R.I. 0.67 . Right lower Pole medulla 36.6/13.3 Left lower Pole medulla 38.6/15.3 PSV/EDV . PSV/EDV . Right lower pole medulla EDR 0.36 . Left lower pole medulla EDR 0.40 . Right lower pole medulla R.I. Left lower pole medulla R.I. 0.60 . 0.64 . Lower Pole Cortx 29.4/11 PSV/EDV. Lower Pole Cortex 28/10.8 PSV/EDV. Left lower pole cortex EDR 0.37 . Right lower pole cortex EDR 0.39 . Left lower pole cortex R.I. 0.63 . Right lower pole cortex R.I. 0.61 . Left Renal Hilar Right Renal Hilar LT Hilar avg 54.7/20 PSV/EDV . Right Hilar avg 56.3/17.9 PSV/EDV. Left hilar acceleration time 40 Right hilar acceleration time 40 m/sec. m/sec. Left Renal Dimensions Right Renal Dimensions Left kidney size 12.71 cm . Right kidney size 13.16 cm . Left cortical dimension 1.83 cm . Right cortical dimension 1.83 cm . Aorta Proximal abdominal aorta 1.94 x 1.93 cm . Proximal abdominal aorta peak systolic velocity is 62.2 cm/sec . Distal aorta not visualized due to bowel gas. VL/Renal Artery Duplex Ultrasound Interpretation Summary Less than 60% stenosis bilateral renal arteries Proximal abdominal aorta 1.94 x 1.93 cm diameter. Distal aorta could not be vis ualized secondary to bowel gas. Right renal length maintained at 13.16 cm Left renal length maintained at 12.71 cm Ordering Physician: Fred Spence Referring Physician: Fazal España Performed By: Jami Glass RVT
[2020-09-10 05:57] LABS: Absolute Lymphocyte Count 1.65 X10^3/uL (0.83-4.51); Absolute Neutrophil Count 3.7 X10^3/uL (2.0-7.7); Basophil# 0.03 X10^3/uL; Basophil% 0.5 % (0-1); Eosinophil# 0.38 X10^3/uL; Eosinophils% 6.2 % (0-5); Hematocrit 41.1 % (40-54); Hemoglobin 13.1 g/dL (13.0-16.5); Lymphocyte # 1.65 X10^3/ul (4.0); Lymphocyte % 26.9 % (19-41); Mean Corp Hgb Conc 31.9 g/dL (32-36); Mean Corpuscular Hgb 30.5 pg (27.0-32.0); Mean Corpuscular Volume 95.8 fL (80-94); Mean Platelet Vol. 9.5 fl (6.2-12.0); Monocyte# 0.35 X10^3/uL; Monocyte% 5.7 % (0-10); NRBC Flagged by Analyzer 0 % (0-5); Neutrophil % 60.2 % (47-70); Platelet Count 295 K/mm3 (150-450); RBC Distribution Width CV 12.6 % (11.6-14.6); Red Blood Count 4.29 M/mm3 (4.6-6.2); White Blood Count 6.1 K/mm3 (4.4-11.0)
[2020-09-10 06:22] LABS: Anion Gap 4 (5-15); BUN 16 mg/dL (7-18); BUN/Creat Ratio 18.3 RATIO (10-20); Chloride 103 mmol/L (98-107); Creatinine, Serum 0.88 mg/dL (0.70-1.30); EST Glomerular Filtration Rate 96 mL/min (>60); Est Glom Filt Rate - Afr Amer 116 mL/min (>60); Estimated Creatinine Clearance 97.93 ml/min; Glucose 99 mg/dL (74-106); Magnesium 1.9 mg/dL (1.6-2.6); Potassium 4.1 mmol/L (3.5-5.1); Sodium Level 136 mmol/L (136-145)
[2020-09-10 06:59] VITALS: PULSE 68
--- NOTE | 2020-09-10 08:57 | PCM.PN.CARD ---
Subjectve: The patient states he feels much better today. He describes no ongoing acute chest discomfort or difficulty breathing. Objective: Vital Signs Temp Pulse Resp BP Pulse Ox 98.1 F 68 12 118/72 95 09/10/20 03:20 09/10/20 06:59 09/10/20 03:20 09/10/20 03:20 09/10/20 03:20 Oxygen Delivery Method Room Air Weight: 207 lb 10.807 oz Body Mass Index (BMI) 29.7 Intake and Output for Last 24 Hours 09/08/20 09/09/20 09/10/20 23:59 23:59 23:59 Intake Total 2185 / 2185 500 / 500 Balance 2185 / 2185 500 / 500 General: Awake, Alert, Oriented x 3, Cooperative, No Acute Distress HEENT: Atraumatic, Normocephalic, PERRL, EOMI, Sclera Non Icteric Neck: Supple, Good ROM, No JVD Lungs: Clear to auscultation Cardiovascular: Regular Rhythm, Normal S1, Normal S2 Vascular: Normal Radial Pulses Abdomen: Bowel Sounds Present, Soft Extremities: No Cyanosis, No Clubbing, No edema Neurological: No Focal Motor or Sensory Deficit Psych/Mental Status: Appropriate 09/10/20 05:32: WBC 6.1, RBC 4.29 L, Hgb 13.1, Hct 41.1, MCV 95.8 H, MCH 30.5, MCHC 31.9 L, Plt Count 295, MPV 9.5, Immature Gran % (Auto) 0.500, Neut % (Auto) 60.2, Lymph % (Auto) 26.9, [place] % (Auto) 5.7, Eos % (Auto) 6.2 H, Baso % (Auto) 0.5, Absolute Neuts (auto) 3.7, Nucleated RBC % 0 09/10/20 05:32: Sodium 136, Potassium 4.1, Chloride 103, Carbon Dioxide 29.0, Anion Gap 4 L, BUN 16, Creatinine 0.88, Est GFR (MDRD) Af Amer 116, Est GFR (MDRD) Non-Af 96, BUN/Creatinine Ratio 18.3, Glucose 99, Calcium 9.0, Phosphorus 4.0, Magnesium 1.9 Rhythm: Sinus rhythm Clinical Impression(s) from Imaging Studies Echocardiogram 09/09/20 15:01 Interpretation Summary Left ventricular systolic function is normal. The estimated ejection fraction is 70 %. Sigmoid septum. Mild focal mitral valve calcification of the anterior leaflet. Trivial mitral valve insufficiency. Trivial tricuspid valve insufficiency. Mild focal aortic valve calcification. Trivial aortic valve insufficiency. Unable to estimate RV systolic pressure due to insufficient tricuspid regurgitant envelope. Transmitral doppler flow suggestive of impaired relaxation of left ventricle Ordering Physician: Bhumi Bishop Referring Physician: JOSIE MAXWELL Performed By: Janae Huang, KEENA, RVT LUSIONS Elevated Left Ventricular End Diastolic Pressure (mild) Normal LV size, wall motion,and systolic function LVEF: by LV gram 65 % [place] Multivessel CAD RECOMMENDATIONS Risk factor modification Medical therapy DESCRIPTION OF PROCEDURE The patient arrived to the procedure lab. The risks and benefits of the procedure as well as a full description of our services here and current unavailability of surgical backup were fully explained to the patient and/or their significant other prior to the catheterization. The Timeout was completed, verifying the correct patient and procedure. The patient's procedural site was prepped and draped in the usual fashion. Local anesthetic was given subcutaneously to right radial region with Lidocaine 2%. Using a modified Seldinger technique, arterial access was obtained via the right radial artery, a 6Fr sheath was inserted. Left Coronary Artery selective angiography was performed in multiple views using a 5 Fr. 4.0 [place] catheter. Right Coronary Artery selective angiography was then performed in multiple views using a 5 Fr. 4.0 [place] catheter. Left Ventriculography was performed in [place] projection using a 5 Fr. Pigtail catheter. LV to AO pullback pressures were then recorded.The arterial sheath was pulled and a TR Band was applied for hemostasis CORONARY ANGIOGRAPHY DOMINANCE: Right Dominant LEFT HEART ASSESSMENT Left Ventricular Ejection Fraction: by LV Gram 65 % Normal LV wall motion Elevated Left Ventricular End Diastolic Pressure LVEDP: 14 mmHg LEFT MAIN: Angiographically normal LEFT ANTERIOR DESCENDING ARTERY: Mild luminal irregularities DIAGONAL 1: Proximal - bifurcating branch: small: proximal: 25 % Stenosis CIRCUMFLEX ARTERY: Angiographically normal RIGHT CORONARY ARTERY: Mild luminal irregularities MID RCA: smooth: eccentric: 25 % Stenosis DISTAL RCA: smooth: eccentric: 25 % Stenosis AORTIC ROOT: Angiographically normal Preliminary artery duplex study: Preliminary report: No hemodynamically significant renal artery stenosis: Official report pending Medical Necessity - Tobacco Use Smoking Status: Former smoker Assessment/Plan 1. Abnormal cardiac enzymes / NSTEMI The patient has undergone further evaluation with transthoracic echocardiogram and diagnostic cardiac catheterization. The results are as noted. He was not found to have angiographically significant appearing coronary artery disease. Thus there is concern that his non-STEMI was a type II event secondary to his underlying marked hypertension. At the moment he will continue cardiovascular risk factor modification medical therapy as deemed appropriate. 2. Hypertension His blood pressure appears to be coming under better control. He has renal artery duplex study on preliminary report is negative for any hemodynamically significant renal artery stenosis. The final report is pending. He will need continued medical management to assist with his blood pressure control. 3. Hyperlipidemia He will continue evaluation and care and medical management as deemed appropriate. Overall, if the patient remains symptomatically and hemodynamically stable, then hopefully the patient will be able to be released home for continued outpatient primary care and cardiovascular follow-up. Comment: The patient's case has been discussed and reviewed with the patient. This note was generated using a voice recognition system and there may be incorrect words, spelling or punctuation that were not noted when reviewing the office note prior to saving.
[2020-09-10 08:59] VITALS: BP 155/78; PULSE 78; RESP 16; TEMP 36.4; O2SAT 95
[2020-09-10] MEDS: Enoxaparin 40 MG/0.4 ML Syringe SC (09:00)
[2020-09-10] MEDS: Pantoprazole Sodium 40 MG Tablet PO (09:00)
[2020-09-10] MEDS: amLODIPine 10 MG Tablet PO (09:00)
[2020-09-10] MEDS: Aspirin E.C. 81 MG Tablet PO (09:00)
[2020-09-10] MEDS: Losartan Potassium 100 MG Tablet PO (09:00)
[2020-09-10] MEDS: Carvedilol 12.5 MG Tablet PO (09:08)
--- NOTE | 2020-09-10 13:01 | PCM.DC ---
- Discharge Diagnoses Current Active Problems: Current Active and Chronic Problems (Last Updated 09/09/20 @ 15:59 by Alayna Almodovar) Abnormal cardiac enzyme level (Acute) HTN (hypertension) (Chronic) HLD (hyperlipidemia) (Chronic) You will use the following diet at home:: Cardiac Your food should be the consistency of: Regular Your liquids should be the consistency of: Regular/Thin Discharge Activity: May Drive, May Shower, - - Return to work on Tuesday Call your doctor if your incision/area has: Continuous Slow Oozing, Sudden Increased Bleeding, Increased Pain/ Swelling, Increased Redness, Foul Smelling Discharge, Swelling at the incision site Allergies/Adverse Reactions: Allergies BEE STINGS Allergy (Uncoded 03/28/19 20:49) Anaphylaxis Medications to take at Discharge Esomeprazole Sodium 20 mg IV DAILY 03/28/19 traZODone [Desyrel] 50 mg PO QHS 03/28/19 Aspirin [Aspirin, Baby] 81 mg PO DAILY 09/09/20 Atorvastatin Calcium [Lipitor] 20 mg PO QHS 09/09/20 Fluticasone 0.05% [Flonase Nasal [place]] 1 spray NASAL DAILY 09/09/20 Loratadine 10 mg PO DAILY 09/09/20 Multiple Vitamin 1 tablet PO DAILY 09/09/20 Amlodipine [Norvasc] 10 mg PO DAILY #30 tablet 09/10/20 Carvedilol [Coreg (Beta Gladys)] 12.5 mg PO BID #60 tablet 09/10/20 Valsartan [Diovan] 320 mg PO DAILY #60 tablet 09/10/20 The following prescriptions were given: Carvedilol [Coreg (Beta Gladys)] 12.5 mg PO BID #60 tablet Transmission Status: Received by [facility] Valsartan [Diovan] 320 mg PO DAILY #60 tablet Transmission Status: Received by [facility] Amlodipine [Norvasc] 10 mg PO DAILY #30 tablet Transmission Status: Received by [facility] Primary Care Physician: Fazal España DO [Primary Care Provider] - Please follow up with your Primary Care Physician in: 1-2 weeks Test Results: Test results from this visit will be discussed in further detail at your follow-up appointment, if applicable. Please Follow Up With: Fred Spence MD When: 2-4 weeks/as directed
--- NOTE | 2020-09-10 13:28 | DS.PCM_ITS ---
Discharge Date and Diagnosis - Problem List Patient Problems: Active and Suspected Problems (Last Updated 09/09/20 @ 15:59 by Alayna Almodovar) Abnormal cardiac enzyme level (Acute) Date of Admission: 09/09/20 Date of Discharge: 09/10/20 - Primary Discharge Diagnosis Acute Problems: Active Problems (Last Updated 09/09/20 @ 15:59 by Alayna Almodovar) Abnormal cardiac enzyme level (Acute) - Secondary Discharge Diagnosis Chronic Problems: Chronic Problems (Last Updated 09/09/20 @ 15:59 by Alayna Almodovar) Atherosclerotic heart disease of [place] coronary artery without angina pectoris (Chronic) Mild HTN (hypertension) (Chronic) HLD (hyperlipidemia) (Chronic) Hospital Course and Treatment Imaging Results: Reason For Study: HTN Procedure This was a 2D Doppler, Color Flow transthoracic echocardiogram. The exam was of adequate technical quality. Exam performed portable in patient room. Left Ventricle Normal LV size. Sigmoid septum. Left ventricular systolic function is normal. The estimated ejection fraction is 70 %. Transmitral doppler flow suggestive of impaired relaxation of left ventricle. No regional wall motion abnormalities noted. Right Ventricle Normal RV size. Normal systolic function. Atria Normal left atrium. Normal right atrium. No doppler evidence for ASD. Mitral Valve There is no mitral annular calcification. Mild focal mitral valve calcification of the anterior leaflet. Trivial mitral valve insufficiency. Tricuspid Valve Normal tricuspid valve. Trivial tricuspid valve insufficiency. Unable to es timate RV systolic pressure due to insufficient tricuspid regurgitant envelope. Aortic Valve Trisinus/trileaflet aortic valve. Mild focal aortic valve calcification. Trivial aortic valve insufficiency. Pulmonic Valve The pulmonic valve is not well visualized. Great Vessels Normal sized aortic root. Pericardium/Pleural No pericardial effusion. MMode/2D Measurements & Calculations LVIDd: 3.5 cm IVSd: 1.6 cm LVOT diam: 2.0 cm LVIDs: 2.6 cm LVPWd: 1.2 cm LVOT area: 3.3 cm2 RVDd: 3.5 cm FS: 25.1 % _ Ao root diam: 3.6 cm LAV(MOD-bp): 65.5 ml LVAd ap4: 35.2 cm2 LAV(MOD-bp) Indexed: 30.9 ml/m2 EDV(MOD- sp4): 103.3 ml LAV(MOD-sp2): 95.7 ml EDV(sp4- el): 108.6 ml LAV(MOD-sp4): 32.5 ml LVAs ap4: 18.9 cm2 ESV(MOD- sp4): 39.7 ml ESV(sp4- el): 40.0 ml EF(MOD- sp4): 61.6 % EF(sp4- el): 63.1 % _ SV(MOD-sp4): 63.6 ml SV(sp4-el): 68.6 ml LA A4 area: 13.6 cm2 _ LA dimension(2D): 3.5 cm RA A4 area: 13.1 cm2 Time Measurements MV dec time: 0.35 sec Doppler Measurements & Calculations MV E max [place]: 63.9 cm/sec Lat Peak E' [place]: 7.7 cm/sec Med Peak E' [place]: 6.7 cm/sec MV A max [place]: 91.8 cm/sec E/E' lat: 8.3 E/E' med: 9.5 MV E/A: 0.70 _ Ao V2 max: 180.4 cm/sec LV V1 max: 148.6 cm/sec PA V2 max: 115.4 cm/sec Ao max P.0 mmHg LV V1 max P.8 mmHg EDUARDO(V,D): 2.7 cm2 ECHO/Echo Complete W/ Contrast Interpretation Summary Left ventricular systolic function is normal. The estimated ejection fraction is 70 %. Sigmoid septum. Mild focal mitral valve calcification of the anterior leaflet. Trivial mitral valve insufficiency. Trivial tricuspid valve insufficiency. Mild focal aortic valve calcification. Trivial aortic valve insufficiency. Unable to estimate RV systolic pressure due to insufficient tricuspid regurgitant envelope. Transmitral doppler flow suggestive of impaired relaxation of left ventricle PROCEDURE(S) PERFORMED [id number]/LV CLINICAL PROFILE AND INDICATIONS Indications: ACS <= 24 hrs, Suspected CAD Heart Failure: None Angina Classification Anginal Classification w/in 2 Weeks: CCS IV (chest discomfort with rest) CAD Presentations: Non-STEMI. CONCLUSIONS Elevated Left Ventricular End Diastolic Pressure (mild) Normal LV size, wall motion,and systolic function LVEF: by LV gram 65 % [place] Multivessel CAD RECOMMENDATIONS Risk factor modification Medical therapy DESCRIPTION OF PROCEDURE The patient arrived to the procedure lab. The risks and benefits of the procedure as well as a full description of our services here and current unavailability of surgical backup were fully explained to the patient and/or their significant other prior to the catheterization. The Timeout was completed, verifying the correct patient and procedure. The patient's procedural site was prepped and draped in the usual fashion. Local anesthetic was given subcutaneously to right radial region with Lidocaine 2%. Using a modified Seldinger technique, arterial access was obtained via the right radial artery, a 6Fr sheath was inserted. Left Coronary Artery selective angiography was performed in multiple views using a 5 Fr. 4.0 [place] catheter. Right Coronary Artery selective angiography was then performed in multiple views using a 5 Fr. 4.0 [place] catheter. Left Ventriculography was performed in [place] projection using a 5 Fr. [place] catheter. LV to AO pullback pressures were then recorded.The arterial sheath was pulled and a TR Band was applied for hemostasis CORONARY ANGIOGRAPHY DOMINANCE: Right Dominant LEFT HEART ASSESSMENT Left Ventricular Ejection Fraction: by LV Gram 65 % Normal LV wall motion Elevated Left Ventricular End Diastolic Pressure LVEDP: 14 mmHg LEFT MAIN: Angiographically normal LEFT ANTERIOR DESCENDING ARTERY: Mild luminal irregularities DIAGONAL 1: Proximal - bifurcating branch: small: proximal: 25 % Stenosis CIRCUMFLEX ARTERY: Angiographically normal RIGHT CORONARY ARTERY: Mild luminal irregularities MID RCA: smooth: eccentric: 25 % Stenosis DISTAL RCA: smooth: eccentric: 25 % Stenosis AORTIC ROOT: Angiographically normal COMPLICATIONS No Complications PROCEDURE MEDICATIONS Fentanyl 50 mcg IV Versed 1 mg IV Oxygen: 2 L/min via nasal cannula Heparin diluted in 23cc Heparinized saline. Patient given 10cc IA of this solution. 09/09/2020 14:30:54 Verapamil 2.5mg, Ntg 100mcgs, 2000 units of Heparin diluted in 23cc Heparinized saline. Patient given 10cc IA of this solution. 09/09/2020 14:30:54 SUMMARY OF HEMODYNAMIC DATA Time AIR REST ECG 14:05:37 AO 150/94 (118) SA 14:31:09 LV 192/-19, 18 14:43:16 LV 173/-19, 14 14:43:24 LV 167/-12, 7 14:44:16 LVp 174/-14, 17 14:44:22 AOp 169/90 (125) 14:44:27 AO 172/90 (124) 14:44:31 Cardiology Operations: None Procedures: Cardiac catheterization Summary of Care Provided: Mr. Hall is a 55 year old [employer] employee at [employer] with a past medical history of hypertension, hyperlipidemia, GERD, seasonal allergies, OA, history of tobacco abuse and insomnia who presented to [facility] on 09/08/2020 for evaluation related to elevated blood pressure and chest pain. He reported at that time he had been in his normal state of health until approximately 1 week ago when he started having upper respiratory congestion and rhinorrhea. He purchased DayQuil and had been taking it fairly consistent since that time. His upper respiratory symptoms were improving but he continued to have some nasal congestion. A Covid test was done there and was negative. He states that while he was at home he became flushed, had chest pressure/tightness and he took his blood pressure and and was noted to be elevated with a systolic blood pressure greater than 180. He became concerned regarding his blood pressure and presented to the emergency department in [place] at that time. Upon his arrival there his blood pressure was 196/115 and his EKG showed no acute ST elevation or depression. His CBC and CMP were unremarkable. He was medicated with IV labetalol with some improvement to a blood pressure of 165/110 but after sometimes had blood pressure began to creep back up and was 192/105. He was admitted for observation. He was placed on telemetry monitoring and his symptoms resolved. Alterations were made in his antihypertensives and his blood pressure did improve however was not normalized. Serial high-sensitivity troponins were obtained and were elevated throughout his stay but had trended down. On the morning of his admission here his last serial troponin trended up from where it was previously. A stress test had been planned but was canceled with his troponin elevation and EKG was repeated. His repeat EKG again showed no ST-T wave elevation or depression and he remained in sinus rhythm. He remained chest free. At that time he was given 325 mg of chewable aspirin and his case was discussed with Dr. Spence from cardiology here at [place] and he requested that the patient be given 180 mg of Brilinta and be transferred for further cardiology work-up. Left heart catheterization was performed on 09/10/2020 and revealed an EF of 65%, normal LV wall motion, and angiographically normal left main and circumflex, as well as 25% stenosis in the diagonal and RCA. His blood pressure remain elevated and a renal artery duplex was performed. The preliminary read was normal. His antihypertensives were titrated up and his discharge medications included valsartan 325 mg daily, carvedilol 12.5 mg twice daily, and amlodipine 10 mg daily. His prescriptions were faxed to his pharmacy. He is to follow-up with his primary care physician in 1 week to reassess his blood pressure on his current medications and with Dr. Spence in 2 to 4 weeks. He may return to work on Tuesday09/15/2020. Discharge diagnoses Hypertensive emergency-resolved Type II NSTEMI secondary uncontrolled hypertension Nonobstructive CAD Hyperlipidemia GERD Insomnia OA Tobacco abuse Discharge time greater than 35 minutes Patient Problems: Active and Suspected Problems (Last Updated 09/09/20 @ 15:59 by Alayna Almodovar) Abnormal cardiac enzyme level (Acute) Subjective: Patient states he feeling well this morning. He notes his blood pressures have overall been better when they have been assessed. He currently has no complaints. - Physical Exam Vitals/I&O's: Vital Signs Temp Pulse Resp BP Pulse Ox 97.5 F L 78 16 155/78 H 95 09/10/20 08:59 09/10/20 08:59 09/10/20 08:59 09/10/20 08:59 09/10/20 08:59 Oxygen Delivery Method Room Air Weight: 94.2 kg Body Mass Index (BMI) 29.7 Intake and Output for Last 24 Hours 09/08/20 09/09/20 09/10/20 23:59 23:59 23:59 Intake Total 2185 / 2185 190 / 1900 Balance 2185 / 2185 190 / 190 General: Alert, Oriented x3, Cooperative, No apparent distress, Well developed, Well nourished, - - Middle-aged white male sitting up in bed, watching television, appears well HEENT: Atraumatic, PERRLA, EOMI, Normocephalic, EAC Clear Oral: Moist Mucosa, No Gingival or Mucosal Lesions/ Ulcerations, - - Good dentit ion, no thrush, Mallampati 2 Neck: Supple, No JVD, Trachea Midline, Thyroid Normal Size and Texture Lungs: Clear to auscultation, Normal air movement, No rhonchi, No wheeze, No rales Cardiovascular: Regular rate, Regular Rhythm, Normal S1, Normal S2, No murmurs, No Ectopic Activity, No rub noted, No Gallop Abdomen: Bowel Sounds Present, Soft, Non Tender, Non-Distended, No Hepato- splenomegaly Extremities: No clubbing, No cyanosis, No edema, Capillary Refill Less than 3 Se conds, Peripheral Pulses Normal Skin: No rashes, No breakdown Musculoskeletal: No Tenderness to Palpation of Joints or Extremities, No Muscle Wasting Lymphatic: No Cervical, Supraclavicular, or Inguinal Adenopathy Neurological: Cranial nerves II-XII grossly intact, Neuro grossly intact, Muscle tone normal, Coordination normal Psych/Mental Status: Normal Affect, Appropriate, - - Very pleasant Laboratory Results 09/10/20 05:32: WBC 6.1, RBC 4.29 L, Hgb 13.1, Hct 41.1, MCV 95.8 H, MCH 30.5, MCHC 31.9 L, RDW Std Deviation 44.0 H, RDW Coeff of Asiya 12.6, Plt Count 295, MPV 9.5, Immature Gran % (Auto) 0.500, Neut % (Auto) 60.2, Lymph % (Auto) 26.9, [place]cd[place] % (Auto) 5.7, Eos % (Auto) 6.2 H, Baso % (Auto) 0.5, Absolute Neuts (auto) 3.7, Absolute Lymphs (auto) 1.65, Nucleated RBC % 0 09/10/20 05:32: Sodium 136, Potassium 4.1, Chloride 103, Carbon Dioxide 29.0, Anion Gap 4 L, BUN 16, Creatinine 0.88, Estim Creat Clear Calc 97.93, Est GFR (MDRD) Af Amer 116, Est GFR (MDRD) Non-Af 96, BUN/Creatinine Ratio 18.3, Glucose 99, Calcium 9.0, Phosphorus 4.0, Magnesium 1.9 Current Medications Acetaminophen (Acetaminophen 325 Mg Tablet) 650 mg PO Q6H PRN PRN PRN Reason: Pain Score 1-10/Temp > 100.7 F Last Admin: 09/10/20 09:08 Dose: 650 mg Documented by: Al Hydroxide/Mg Hydroxide (Mag Hydrox/Al Hydrox/Simeth 30 Ml Udc) 30 ml PO Q6H PRN PRN PRN Reason: Gastric Burning Albuterol Sulfate (Albuterol 2.5 Mg/3 Ml Vial.Neb.) 2.5 mg INHALATION Q2H PRN PRN PRN Reason: SOB/Wheezing Amlodipine Besylate (Amlodipine 10 Mg Tablet) 10 mg PO DAILY TEJAL Last Admin: 09/10/20 09:00 Dose: 10 mg Documented by: Aspirin (Aspirin E.C. 81 Mg Tablet) 81 mg PO DAILY@0800 [facility] Last Admin: 09/10/20 09:00 Dose: 81 mg Documented by: Atorvastatin Calcium (Atorvastatin Calcium 80 Mg Tablet) 80 mg PO QHS [facility] Last Admin: 09/09/20 21:26 Dose: 80 mg Documented by: Carvedilol (Carvedilol 12.5 Mg Tablet) 12.5 mg PO BID [facility] Last Admin: 09/10/20 09:08 Dose: 12.5 mg Documented by: Enoxaparin Sodium (Enoxaparin 40 Mg/0.4 Ml Syringe) 40 mg SC DAILY [facility] Last Admin: 09/10/20 09:00 Dose: 40 mg Documented by: Sodium Chloride () 1,000 mls @ 15 mls/hr IV .Q48H [facility] Last Admin: 09/09/20 14:56 Dose: Not Given Documented by: Losartan Potassium (Losartan Potassium 100 Mg Tablet) 100 mg PO DAILY [facility] Last Admin: 09/10/20 09:00 Dose: 100 mg Documented by: Melatonin (Melatonin 3 Mg Tablet) 3 mg PO QHS PRN PRN PRN Reason: INSOMNIA Last Admin: 09/10/20 00:06 Dose: 3 mg Documented by: Nicotine (Nicotine 14 Mg Patch) 14 mg TD DAILY [facility] Last Admin: 09/10/20 09:01 Dose: 14 mg Documented by: Nitroglycerin (Nitroglycerin (Inpatient Use) 0.4 Mg Tab.Subl) 0.4 mg SL Q5M PRN PRN Reason: CARDIAC/CHEST PAIN Ondansetron HCl (Ondansetron 4 Mg/2 Ml Vial) 4 mg IV Q8H PRN PRN PRN Reason: NAUSEA/VOMITING Pantoprazole Sodium (Pantoprazole Sodium 40 Mg Tablet) 40 mg PO DAILY [facility] Last Admin: 09/10/20 09:00 Dose: 40 mg Documented by: Senna/Docusate Sodium (Senna/Docusate Sodium 1 Tablet) 2 tablet PO BID PRN PRN PRN Reason: Constipation Sodium Chloride (0.9% Saline Lock 10 Ml Syringe) 10 - 40 ml IV UD PRN PRN Reason: SALINE FLUSH Throat Lozenges (Benzocaine/Menthol 1 Lozenge) 1 lozenge MUCOUS MEM Q2H PRN PRN PRN Reason: SORE THROAT Trazodone HCl (Trazodone 50 Mg Tablet) 50 mg PO QHS [facility] Last Admin: 09/09/20 21:26 Dose: 50 mg Documented by: Discharge Activity: May Drive, May Shower, - - Return to work on Tuesday Call your doctor if your incision/area has: Continuous Slow Oozing, Sudden Increased Bleeding, Increased Pain/ Swelling, Increased Redness, Foul Smelling Discharge, Swelling at the incision site Home Medications: Medications to take at Discharge Esomeprazole Sodium 20 mg IV DAILY 03/28/19 traZODone [Desyrel] 50 mg PO QHS 03/28/19 Aspirin [Aspirin, Baby] 81 mg PO DAILY 09/09/20 Atorvastatin Calcium [Lipitor] 20 mg PO QHS 09/09/20 Fluticasone 0.05% [Flonase Nasal [place]] 1 spray NASAL DAILY 09/09/20 Loratadine 10 mg PO DAILY 09/09/20 Multiple Vitamin 1 tablet PO DAILY 09/09/20 Amlodipine [Norvasc] 10 mg PO DAILY #30 tablet 09/10/20 Carvedilol [Coreg (Beta Gladys)] 12.5 mg PO BID #60 tablet 09/10/20 Valsartan [Diovan] 320 mg PO DAILY #60 tablet 09/10/20 Following Prescriptions Were Given to Patient: Carvedilol [Coreg (Beta Gladys)] 12.5 mg PO BID #60 tablet Transmission Status: Received by [facility] Valsartan [Diovan] 320 mg PO DAILY #60 tablet Transmission Status: Received by [facility] Amlodipine [Norvasc] 10 mg PO DAILY #30 tablet Transmission Status: Received by [facility] Primary Care Physician: Fazal España DO [Primary Care Provider] - Please follow up with your Primary Care Physician in: 1-2 weeks Please Follow Up With: Fred Spence MD When: 2-4 weeks/as directed Medical Necessity - Tobacco Use Smoking Status: Former smoker Meaningful Use Info Meaningful Use Diagnoses (Choose all that apply): None applicable Inpatient E&M: 91442 Disch Hosp
[2020-09-10 14:06] VITALS: BP 115/78; PULSE 74; RESP 17; TEMP 36.6; O2SAT 96
--- NOTE | 2020-09-10 14:40 | PHA.DC.MC ---
Pharmacy Service has performed discharge medication reconciliation and counseling for this patient. 1. CARVEDILOL 12.5MG PO BID The patient's discharge medication list was reviewed for discrepancies and discrepancies were resolved. Home Medications Esomeprazole Sodium 20 mg IV DAILY 03/28/19 traZODone [Desyrel] 50 mg PO QHS 03/28/19 Aspirin [Aspirin, Baby] 81 mg PO DAILY 09/09/20 Atorvastatin Calcium [Lipitor] 20 mg PO QHS 09/09/20 Fluticasone 0.05% [Flonase Nasal [place]] 1 spray NASAL DAILY 09/09/20 Loratadine 10 mg PO DAILY 09/09/20 Multiple Vitamin 1 tablet PO DAILY 09/09/20 Amlodipine [Norvasc] 10 mg PO DAILY #30 tablet 09/10/20 Carvedilol [Coreg (Beta Gladys)] 12.5 mg PO BID #60 tablet 09/10/20 Valsartan [Diovan] 320 mg PO DAILY #60 tablet 09/10/20 The patient was counseled on the following discharge medications and changes in medications for homegoing were reviewed. The Reason for Use, instructions for use, and potential side effects were reviewed for all new medications. The patient's questions regarding all of their medications were answered. The patient was able to verbally demonstrate an understanding of their discharge medications.
--- NOTE | 2020-09-10 14:45 | CHAPLAIN ---
Type of Pastoral Visit ___ Initial Visit _x__ Follow-up Visit ___ On-call Visit ___ General Patient Visit ___ Spiritual Assessment ___ Family Conference ___ Bereavement ___ Rapid Response ___ Code Blue ___ Other (describe below) Pastoral Care Referral From _x__ Patient ___ Family ___ Nurse ___ Physician ___ Office Clerk Assistant ___ Purification Operator Helper ___ Other (describe below) Sacrament/Intervention _x__ Active listening ___ Anointing ___ Mosque ___ Bereavement ___ Communion ___ Sigrid exploration ___ ___ Life review ___ Prayer ___ Reconciliation ___ Sacrament of Sick ___ Supportive presence ___ Wedding ___ Other (describe below) Pastoral Comments
== END 2020-09-10 13:09 | disposition home or self-care (01) ==
PROVIDERS: Admitting Provider Internal Medicine; PCP Preventive Medicine Occupational Medicine; Visit Provider Internal Medicine
DX: I21.A1 Myocardial infarction type 2 (principal); I25.10 Atherosclerotic heart disease of native coronary artery without angina pectoris; I16.1 Hypertensive emergency; R74.8 Abnormal levels of other serum enzymes; I10 Essential (primary) hypertension; E78.5 Hyperlipidemia, unspecified; R23.2 Flushing; Z79.899 Other long term (current) drug therapy; Z79.82 Long term (current) use of aspirin; Z87.891 Personal history of nicotine dependence; K21.9 Gastro-esophageal reflux disease without esophagitis; M19.90 Unspecified osteoarthritis, unspecified site; R09.81 Nasal congestion; G47.00 Insomnia, unspecified; Z79.1 Long term (current) use of non-steroidal anti-inflammatories (NSAID); R79.89 Other specified abnormal findings of blood chemistry
CPT/HCPCS: 80048; 83735; 84100; 85025; 93005; 93306; 93458; 93975; 96360; 96361; 96372; 99152; 99153; 99218; 99406; J7030; J7040; Q9967; C1769; C1894; C8929; G0378; G0379

== ENCOUNTER → 2020-11-06 11:32 | Outpatient (CLI) | payer OTHER, SELFPAY ==
[2020-10-10 11:33] VITALS: BMI 29.9
[2020-11-06 14:34] LABS: AST(SGOT) 22 U/L (15-37); Alanine Aminotransfer ALT/SGPT 29 U/L (16-61); Albumin, Serum 3.6 g/dL (3.2-5.0); Alkaline Phosphatase 86 U/L (45-117); Bilirubin, Direct 0.15 mg/dL (0.00-0.30); Cholesterol 155 mg/dL (200); High Density Lipoprotein 53 mg/dL; Protein, Total 7.6 g/dL (6.4-8.2); Triglycerides 135 mg/dL; Very Low Density Lipoprotein 27 mg/dL (5-40)
== END ==
PROVIDERS: PCP Preventive Medicine Occupational Medicine; Referring Provider Nurse Practitioner Family; Visit Provider Nurse Practitioner Family
DX: E78.5 Hyperlipidemia, unspecified (principal); I25.10 Atherosclerotic heart disease of native coronary artery without angina pectoris
CPT/HCPCS: 36415; 80061; 80076

== ENCOUNTER 2020-11-15 19:15 | Emergency (ER) | payer OTHER, SELFPAY ==
[2020-10-10 11:33] VITALS: BMI 29.9
[2020-11-15 19:16] VITALS: BP 166/83; PULSE 94; RESP 20; TEMP 36.3; O2SAT 94; BMI 30.4
--- NOTE | 2020-11-15 19:33 | RAD_ITS ---
STUDY: X-RAY CHEST REASON FOR EXAM: Male, 55 years old. Chest pain TECHNIQUE: Single frontal view of the chest. COMPARISON: 02/09/2019 FINDINGS: There is a hazy opacity within the left upper lung associated with nonspecific opacities at the left lung base. Normal size heart. Normal mediastinum and keiry. Normal visualized pulmonary arteries. Normal visualized aortic arch and descending thoracic aorta. There are diffuse degenerative changes of the visualized thoracic spine. Normal visualized ribs, clavicles, and shoulders. There is no demonstrated abnormality of the visualized soft tissue structures of the upper abdomen. RAD/Chest 1 View (Portable) IMPRESSION: Nonspecific opacities within the left lung may be secondary to edema and/or multifocal pneumonia. Electronically Signed: Leona Beatty MD at 21:25 EDT Tel , Service support ,
--- NOTE | 2020-11-15 19:33 | EKG12_ITS ---
Test Reason : COUGH Blood Pressure : / mmHG Vent. Rate : 083 BPM Atrial Rate : 083 BPM P-R Int : 156 ms QRS Dur : 084 ms QT Int : 354 ms P-R-T Axes : 028 -23 018 degrees QTc Int : 415 ms Normal sinus rhythm Normal ECG Confirmed by INOCENTE BAXTER, CINDY ([id number]), video news editor TIFFANY MARQUEZ ([id number]) on 11/17/2020 10:45:53 A M Referred By: SAMANTHA Confirmed By:KAREN BROWER MD
--- NOTE | 2020-11-15 19:33 | ED.VIS.DYS ---
HPI History of Present Illness Chief Complaint: Cough Detail of Chief Complaint: Coughing up blood intermittently the last 2 weeks. Informant: patient Onset/Context/Timing Onset: Today and Weeks Timing: Intermittent Current Severity: Mild Maximum Severity: Mild Associated Symptoms cough and green sputum Chest Pain: Positive for None Narrative PE Risk Factors: Positive for Recent immobilization; Negative for Cancer, OCP + Smoking + > 35, Prior DVT or PE, Recent surgery and Recent travel Prior similar symptoms: No Recent Illness/Hospitalization: Yes PFSH PFS Medical History Abnormal cardiac enzyme level Essential hypertension HLD (hyperlipidemia) Home Medications trazodone 50 mg PO QHS 03/28/19 [History Last Taken 09/08/20] aspirin 81 mg PO DAILY 09/09/20 [History Last Taken 09/08/20] fluticasone propionate 1 spray NASAL DAILY PRN 09/09/20 [History Last Taken Unknown] loratadine 10 mg PO DAILY 09/09/20 [History Last Taken 09/08/20] amlodipine 10 mg tablet 10 mg PO DAILY #90 tab 10/10/20 [Rx Last Taken Unknown] atorvastatin 20 mg tablet 20 mg PO QHS #90 tab 10/10/20 [Rx Last Taken Unknown] carvedilol 12.5 mg tablet 12.5 mg PO BID #180 tab 10/10/20 [Rx Last Taken Unknown] multivitamin 1 tab PO DAILY 10/10/20 [History Last Taken Unknown] valsartan 320 mg tablet 320 mg PO DAILY #90 tab 10/10/20 [Rx Last Taken Unknown] Allergy/AdvReac Type Severity Reaction Status Date / Time BEE STINGS Allergy Anaphylaxis Uncoded 11/15/20 19:16 Family History Mother Diabetes Hypertension Hyperlipidemia Brother Diabetes Brother Cancer Surgical History History of left heart catheterization (LHC) (~09/09/20) Social History Smoking Status: Former smoker how long ago did patient quit smokin years ago alcohol intake: current alcohol intake frequency: a few times a month Alcohol type: beer substance use type: does not use caffeine: Yes Type: carbonated beverages and coffee Number of servings: 2 ROS ROS ED ROS Narrative Recent cough with sputum no hemoptysis. No chest pain only mild shortness of breath. No fever or chills. Review of Systems ROS Unobtainable: Denies due to encephalopathy Constitutional Constitutional ED: Denies chills, fever(s), sweats or weight loss Eyes Eyes: Denies change in vision ENT ENT ED: Denies ear pain or sore throat Cardiovascular Cardiovascular: Denies chest pain or palpitations Respiratory/Chest Respiratory/Chest: Reports cough, dyspnea and sputum Gastrointestinal Gastrointestinal: Denies abdominal pain, diarrhea, melena, nausea or vomiting Genitourinary Genitourinary ED: Denies dysuria or hematuria Musculoskeletal Musculoskeletal: Denies arthralgias or myalgias Integumentary Denies rash Neurologic Neurologic: Denies headache(s) Psychiatric Psychiatric: Denies depression Endocrine Endocrinology: Denies polyuria Hematologic/Lymphatic Hematologic/Lymphatic: Denies easy bruising Allergic/Immunologic Allergic/Immunologic ED: Denies urticaria EXAM Physical Exam Narrative Exam Narrative: Well-appearing middle-age male no acute distress vital signs stable afebrile pulse oximeter 94% on room air no signs hypoxia. Exam unremarkable. Lungs are clear. Heart regular rhythm no murmur. Abdomen soft. Calves nontender no edema or cords. Const Vital Signs: 11/15/20 19:16 11/15/20 19:38 11/15/20 20:01 Temperature 97.3 F L Temperature Source Temporal Pulse Rate 94 Respiratory Rate 20 H Respiratory Effort Short of Breath Respiratory Depth Normal Respiratory Pattern Normal Blood Pressure 166/83 H Blood Pressure Mean 110 Pulse Ox 94 Oxygen Delivery Method Room Air Room Air 11/15/20 21:24 Temperature Temperature Source Pulse Rate 82 Respiratory Rate 16 Respiratory Effort Respiratory Depth Respiratory Pattern Blood Pressure 128/73 H Blood Pressure Mean 91 Pulse Ox 97 Oxygen Delivery Method Room Air Positive well nourished and well developed General Appearance ED: well developed HEENT Reports moist mucous membranes atraumatic; Negative for trauma or tenderness Eyes PERRL and EOMs intact bilaterally Neck no lymphadenopathy, supple, no meningeal signs and no JVD General: Negative for tenderness Resp normal respiratory effort and clear to auscultation bilaterally Effort and Inspection: Negative for pain with movement Auscultation: Negative for rales, rhonchi, wheezes or diminished lung sounds Cardio regular rate, regular rhythm, S1 normal heart sound, S2 normal heart sound and no murmurs GI non-tender, non-distended and no masses Auscultation: normoactive bowel sounds Palpation: soft and tender Back/Spine no CVA tenderness and normal to inspection General Back: Negative for CVA tenderness or tenderness Extremity normal to inspection General Extremety ED: Negative for edema, tenderness or other findings General Extremity: Negative for edema or other findings Neuro oriented x3 and CN's II-XII intact bilaterally Sensorium / Orientation: alert, oriented to person, oriented to place and oriented to time; Negative for confused, lethargic or stuporous Motor Exam: strength 5/5 throughout Psych mental status grossly normal Skin Lesions: no lesions Rashes: no rashes MDM MDM MDM Narrative Medical decision making narrative: Middle-age male history of hypertension. Was hospitalized around 2 months ago. Developed a cough 2 to 3 weeks ago. In the last 2 weeks she has now had a cough and at times hemoptysis worse today. Intermittent shortness of breath. He has never had a DVT or PE but his recent risk factor is hospitalization other not detailed. No chest pain. He denies any fever chills has had no obvious TB exposure with. Will undergo a work-up looking for causes hemoptysis including a D-dimer labs chest x-ray EKG. I discussed patient's care with oncology on-call. Due to the nature of the patient's lung mass, the aggressive behavior of the tumor and his amount of hemoptysis we felt he was best served at a tertiary center. I spoke to [facility] and he is excepted the patient and we will set up ground transfer. This should help expedite 1 the diagnosis and onset of treatment and to the concern for the development of worsening hemoptysis or pulmonary hemorrhage. Lab Data Attestation: I reviewed the patient's lab results. Lab results narrative: CBC unremarkable normal white count normal hemoglobin. Chemistries unremarkable normal creatinine. Chest x-ray portable 1 view was concerning for left hilar density which could be a mass could be pneumonia could be pulmonary infarct. Elevated D-dimer therefore CTA was obtained which is being read as an aggressive lung malignancy in the hilar region. I have oncology on page to discuss inpatient work-up versus outpatient work-up. Labs: Laboratory Results - last 24 hr 11/15/20 11/15/2011/15/21 19:45 19:45 19:45 WBC 7.2 RBC 3.94 L Hgb 12.0 L Hct 36.5 L MCV 92.6 MCH 30.5 MCHC 32.9 RDW Std Deviation 41.5 RDW Coeff of Asiya 12.1 Plt Count 418 MPV 9.2 Immature Gran % (Auto) 0.800 Neut % (Auto) 70.2 H Lymph % (Auto) 17.2 L [place] % (Auto) 7.1 Eos % (Auto) 3.9 Baso % (Auto) 0.8 Absolute Neuts (auto) 5.0 Absolute Lymphs (auto) 1.24 Nucleated RBC % 0 D-Dimer Quant (PE/DVT) 3.29 H* Sodium 135 L Potassium 4.4 Chloride 102 Carbon Dioxide 25.0 Anion Gap 8 BUN 13 Creatinine 0.96 Estim Creat Clear Calc 89.77 Est GFR (MDRD) Af Amer 105 Est GFR (MDRD) Non-Af 86 BUN/Creatinine Ratio 13.5 Glucose 171 H Calcium 8.5 Radiography Chest X-Ray - ED: 1 View, Read by ED Physician, Normal, Heart, Mediastinum, Bony Structures and Left Infiltrate Diagnostic Testing: Radiology Impression Chest X-Ray 11/15/20 19:33 IMPRESSION: Nonspecific opacities within the left lung may be secondary to edema and/or multifocal pneumonia. Electronically Signed: Leona Beatty MD at 21:25 EDT Tel , Service support , Chest CTA 11/15/20 20:14 IMPRESSION: 1. No pulmonary embolism. 2. Extensive diffusely invasive left hilar/mediastinal lung cancer. 3. Invasion into the left pulmonary veins, encasement of pulmonary arteries, occlusion of bronchi. 4. Left upper and lower lobe postobstructive pneumonia. 5. Tumor invasion into the left atrium, possibly small thrombus. Electronically Signed: Gio Alfaro MD at 21:09 EDT Tel , Service support , Left upper lobe density could be infiltrate versus other etiologies. CTA of the chest is pending. Portable single view chest x-ray interpreted by myself. Rhythm Strip Rhythm Strip: Sinus Rhythm Rate: 83 Ectopy: None EKG Initial EKG: Attestation: I personally reviewed and interpreted this EKG as follows: Interpretation: Sinus Rhythm Comments: Normal sinus rhythm rate 83 no acute abnormality. Discharge Plan Triage Chief Complaint: Cough ED Provider: Chrsito Quach Dx/Rx/DC Orders Clinical Impression: Lung cancer, hilus, Hemoptysis Prescriptions: No Action multivitamin Tablet 1 tab PO DAILY RF: 0 amlodipine 10 mg tablet 10 mg PO DAILY Qty: 90 RF: 3 carvedilol 12.5 mg tablet 12.5 mg PO BID Qty: 180 RF: 3 valsartan 320 mg tablet 320 mg PO DAILY Qty: 90 RF: 3 atorvastatin 20 mg tablet 20 mg PO QHS Qty: 90 RF: 3 trazodone 50 MG tablet 50 mg PO QHS RF: 0 aspirin 81 MG tablet,chewable 81 mg PO DAILY RF: 0 fluticasone propionate 1 SPRAY spray,suspension 1 spray NASAL DAILY PRN (Reason: Congestion) RF: 0 loratadine 10 MG tablet 10 mg PO DAILY RF: 0 Primary Care Provider: Lincoln Bello NP Referrals: Lincoln Bello MATERIALS BUYER, MATERIALS BUYER-C [Primary Care Provider] - Disposition Disposition: Transfer to another type HCF
[2020-11-15] MEDS: Aspirin 81 MG TAB.CHEW 324 MG PO (19:48)
[2020-11-15 19:54] LABS: Absolute Lymphocyte Count 1.24 X10^3/uL (0.83-4.51); Basophil# 0.06 X10^3/uL; Basophil% 0.8 % (0-1); Eosinophil# 0.28 X10^3/uL; Eosinophils% 3.9 % (0-5); Hematocrit 36.5 % (40-54); Lymphocyte # 1.24 X10^3/ul (0.83-4.51); Lymphocyte % 17.2 % (19-41); Mean Corp Hgb Conc 32.9 g/dL (32-36); Mean Corpuscular Hgb 30.5 pg (27.0-32.0); Mean Corpuscular Volume 92.6 fL (80-94); Mean Platelet Vol. 9.2 fl (6.2-12.0); Monocyte# 0.51 X10^3/uL; Monocyte% 7.1 % (0-10); NRBC Flagged by Analyzer 0 % (0-5); Neutrophil # 5.04 X10^3/uL (2.7-7.7); Neutrophil % 70.2 % (47-70); Platelet Count 418 K/mm3 (150-450); RBC Distribution Width CV 12.1 % (11.6-14.6); RBC Distribution Width SD 41.5 fl (35.1-43.9); Red Blood Count 3.94 M/mm3 (4.6-6.2); White Blood Count 7.2 K/mm3 (4.4-11.0)
[2020-11-15 20:07] LABS: Anion Gap 8 (5-15); BUN 13 mg/dL (7-18); BUN/Creat Ratio 13.5 RATIO (10-20); Calcium,Total 8.5 mg/dL (8.5-10.1); Chloride 102 mmol/L (98-107); Creatinine, Serum 0.96 mg/dL (0.70-1.30); EST Glomerular Filtration Rate 86 mL/min (>60); Est Glom Filt Rate - Afr Amer 105 mL/min (>60); Estimated Creatinine Clearance 89.77 ml/min; Glucose 171 mg/dL (74-106); Potassium 4.4 mmol/L (3.5-5.1); Sodium Level 135 mmol/L (136-145)
[2020-11-15 20:09] LABS: D-Dimer Quantitative (DVT/PE) 3.29 FEU/ug/m (0.27-0.49)
--- NOTE | 2020-11-15 20:14 | CT_ITS ---
ACR Level 3 findings have been noted. An addendum which confirms receipt of the report will follow. STUDY: CTA CHEST REASON FOR EXAM: Male, 55 years old. RADIATION DOSAGE (If Supplied By Facility): CTDIvol = ( 12.66 ) mGy, DLP = ( 998.23 ) mGycm TECHNIQUE: The examination was performed with the intravenous administration of IV 100mL Isovue-370. Post-processing of the angiographic images was performed, with multiplanar reformation and 3D reconstruction. Individualized dose optimization techniques were used for this CT. COMPARISON: None. FINDINGS: Examination is technically suboptimal with diagnostic information available. Segmental branches are not well seen. Lobar branches aren''t evaluable. There is no central/large pulmonary embolism. Aorta is intact. There is diffuse left hilar and mediastinal tumor measuring approximately 6 cm with extensive local invasion. The tumor encases and surrounds the left pulmonary artery narrowing and occluding segmental branches. Tumor obstructs and invades into the left upper and lower pulmonary veins with early invasion into the heart. There is possibly small left atrial intracardiac thrombus adjacent to the tumor. There is extensive contiguous mediastinal lymphadenopathy in the central and right hilar stations. Left lower lobe bronchi are severely narrowed with segmental occlusions and postobstructive pneumonia. There is left upper and lower lobe pneumonia. There is severe coronary artery disease. Pericardium is normal. Both lungs are moderately to severely emphysematous with predominantly peripheral subpleural bullous change. There is a small groundglass focus in the right middle lobe lateral segment, nonspecific pneumonitis, of limited significance. Osseous structures are intact. Upper abdominal organs are unremarkable. CT/CTA Chest W/WO Contrast IMPRESSION: 1. No pulmonary embolism. 2. Extensive diffusely invasive left hilar/mediastinal lung cancer. 3. Invasion into the left pulmonary veins, encasement of pulmonary arteries, occlusion of bronchi. 4. Left upper and lower lobe postobstructive pneumonia. 5. Tumor invasion into the left atrium, possibly small thrombus. Electronically Signed: Gio Alfaro MD at 21:09 EDT Tel , Service support ,
[2020-11-15 21:24] VITALS: BP 128/73; PULSE 82; RESP 16; O2SAT 97
[2020-11-15 23:18] VITALS: BP 173/94; PULSE 99; RESP 17; O2SAT 98
== END 2020-11-15 23:22 | disposition other institution (70) ==
PROVIDERS: Emergency Provider Emergency Medicine; PCP Nurse Practitioner Primary Care
DX: C34.02 Malignant neoplasm of left main bronchus (principal); R04.2 Hemoptysis; Z20.822 Contact with and (suspected) exposure to COVID-19; I10 Essential (primary) hypertension; E78.5 Hyperlipidemia, unspecified; Z79.82 Long term (current) use of aspirin; Z79.899 Other long term (current) drug therapy; Z87.891 Personal history of nicotine dependence
CPT/HCPCS: 71045; 71275; 80048; 85025; 85379; 87426; 93005; 99285; Q9967; A4216

== ENCOUNTER 2020-11-23 22:31 | Emergency (ER) | payer OTHER, SELFPAY ==
[2020-11-23 22:32] VITALS: BP 150/92; PULSE 85; RESP 18; TEMP 35.9; O2SAT 97; BMI 30.1
--- NOTE | 2020-11-23 22:58 | RAD_ITS ---
STUDY: X-RAY CHEST REASON FOR EXAM: Male, 55 years old. Hemoptysis, history stage III non-small cell ca TECHNIQUE: Frontal and lateral views COMPARISON: 11/15/2020. FINDINGS: The lungs are expanded. Persistent left pulmonary infiltrates. Normal size heart. Normal mediastinum and keiry. Normal visualized pulmonary arteries. Normal visualized aortic arch and descending thoracic aorta. Degenerative changes of the thoracic spine. Normal visualized ribs, clavicles, and shoulders. There is no demonstrated abnormality of the visualized soft tissue structures of the upper abdomen. RAD/Chest PA and Lateral IMPRESSION: Persistent left pulmonary infiltrates. Electronically Signed: Abelardo Villaseñor DO at 23:23 EDT Tel [phone], Service support ,
--- NOTE | 2020-11-23 23:12 | EDS_ITS ---
HPI History of Present Illness Chief Complaint: Cough Informant: patient Onset/Context/Timing Onset: Today Context: Sudden Onset Timing: Intermittent Quality: Hemoptysis Location: Pulmonary Current Severity: Mild Maximum Severity: Mild Worsened by: History stage III non-small cell cancer Associated Symptoms Associated Symptoms: No other symptoms Narrative Prior similar symptoms: Yes Recent Illness/Hospitalization: Yes [facility] Medical History Abnormal cardiac enzyme level Essential hypertension HLD (hyperlipidemia) Home Medications trazodone 50 mg PO QHS 03/28/19 [History Last Taken 09/08/20] aspirin 81 mg PO DAILY 09/09/20 [History Last Taken 09/08/20] fluticasone propionate 1 spray NASAL DAILY PRN 09/09/20 [History Last Taken Unknown] loratadine 10 mg PO DAILY 09/09/20 [History Last Taken 09/08/20] amlodipine 10 mg tablet 10 mg PO DAILY #90 tab 10/10/20 [Rx Last Taken Unknown] atorvastatin 20 mg tablet 20 mg PO QHS #90 tab 10/10/20 [Rx Last Taken Unknown] carvedilol 12.5 mg tablet 12.5 mg PO BID #180 tab 10/10/20 [Rx Last Taken Unknown] multivitamin 1 tab PO DAILY 10/10/20 [History Last Taken Unknown] valsartan 320 mg tablet 320 mg PO DAILY #90 tab 10/10/20 [Rx Last Taken Unknown] Allergy/AdvReac Type Severity Reaction Status Date / Time BEE STINGS Allergy Anaphylaxis Uncoded 11/23/20 22:34 Family History Mother Diabetes Hypertension Hyperlipidemia Brother Diabetes Brother Cancer Surgical History History of left heart catheterization (LHC) (~09/09/20) Social History Smoking Status: Former smoker how long ago did patient quit smokin years ago alcohol intake: current alcohol intake frequency: a few times a month Alcohol type: beer substance use type: does not use caffeine: Yes Type: carbonated beverages and coffee Number of servings: 2 ROS ROS ED Constitutional Constitutional ED: Denies chills, fever(s), subjective, sweats or weight loss Eyes Eyes: Denies blurry vision, change in vision or diplopia ENT ENT ED: Denies ear pain, rhinorrhea or sore throat Cardiovascular Cardiovascular: Denies chest pain, orthopnea, palpitations or paroxysmal nocturnal dyspnea Respiratory/Chest Respiratory/Chest: Reports cough and sputum; Denies dyspnea, dyspnea on exertion, orthopnea or paroxysmal nocturnal dyspnea Gastrointestinal Gastrointestinal: Denies abdominal pain, diarrhea, melena, nausea or vomiting Neurologic Neurologic: Denies paresthesias or weakness Allergic/Immunologic Allergic/Immunologic ED: Denies mouth swelling or tongue swelling EXAM Physical Exam Const Vital Signs: 11/23/20 22:32 11/23/20 23:09 11/24/20 01:17 Temperature 96.6 F L Temperature Source Temporal Pulse Rate 85 75 Respiratory Rate 18 16 Respiratory Effort Normal Respiratory Depth Normal Blood Pressure 150/92 H 150/83 H Blood Pressure Mean 111 105 Pulse Ox 97 97 Oxygen Delivery Method Room Air Room Air 11/24/20 01:18 Temperature Temperature Source Pulse Rate 71 Respiratory Rate 16 Respiratory Effort Respiratory Depth Blood Pressure 150/83 H Blood Pressure Mean 105 Pulse Ox 97 Oxygen Delivery Method Positive well nourished and well developed General Appearance ED: well developed and NAD HEENT Reports moist mucous membranes HEENT Narrative: Face is symmetric. Nares patent. Ears normal. No evidence of epistaxis. Eyes PERRL and EOMs intact bilaterally General Eye ED: Negative for pale conjunctiva or scleral icterus Neck no lymphadenopathy, supple and no JVD Neck Narrative: Treat is midline. There is no inspiratory expiratory stridor. Chest Wall inspection of chest normal Resp normal respiratory effort and clear to auscultation bilaterally Cardio regular rate, regular rhythm, S1 normal heart sound, S2 normal heart sound and no murmurs Back/Spine no CVA tenderness Extremity normal to inspection General Extremety ED: Negative for edema or tenderness General Extremity: Negative for edema Neuro oriented x3, CN's II-XII intact bilaterally and no sensory deficits noted Sensorium / Orientation: alert Motor Exam: strength 5/5 throughout Psych mental status grossly normal Skin no rashes or lesions noted and no wounds MDM MDM MDM Narrative Medical decision making narrative: Records reviewed. Patient had significant hemoptysis approximately 2 weeks ago. Was transferred to the [facility]. He underwent bronchoscopy and cauterization of bleeding site. He was informed that this may bleed again. He is to call radiation oncologist tomorrow for radiation therapy followed by chemotherapy. His cancer is nonoperable. CBC was obtained assess H&H and white count. Chest x-ray to determine if there is any significant interval changes from prior. After his x-ray and laboratory results are available for review will contact the [facility] to see if anything else needs to be done at this point. Spoke to Christo at the transfer center and informed him why patient returned and my concerns. He contacted the oncologist on-call Dr. WISE. She recommended ER to ER transfer. Lab Data Attestation: I reviewed the patient's lab results. Labs: Laboratory Results - last 24 hr 11/23/20 11/23/20 23:05 23:05 WBC 9.7 RBC 3.67 L Hgb 11.0 L Hct 34.6 L MCV 94.3 H MCH 30.0 MCHC 31.8 L RDW Std Deviation 42.6 RDW Coeff of Asiya 12.3 Plt Count 527 H MPV 9.5 Immature Gran % (Auto) 1.600 H Neut % (Auto) 69.4 Lymph % (Auto) 17.5 L [place] % (Auto) 7.2 Eos % (Auto) 3.4 Baso % (Auto) 0.9 Absolute Neuts (auto) 6.7 Absolute Lymphs (auto) 1.69 Nucleated RBC % 0 Sodium 133 L Potassium 4.6 Chloride 99 Carbon Dioxide 28.0 Anion Gap 6 BUN 19 H Creatinine 1.21 Estim Creat Clear Calc 71.22 Est GFR (MDRD) Af Amer 80 Est GFR (MDRD) Non-Af 66 BUN/Creatinine Ratio 15.7 Glucose 104 Calcium 9.2 Radiography Chest X-Ray - ED: 2 View, Read by ED Physician, Read by Radiologist, Unchanged, Heart, Bony Structures and - (Pain is scarring/infiltrate left upper lobe and prominent left hilum consistent with stage III non-small cell carcinoma. The report dictated by the radiologist was read. In light of patient's history this is not an infiltrate but cancer.) Diagnostic Testing: Radiology Impression Chest X-Ray 11/23/20 22:58 IMPRESSION: Persistent left pulmonary infiltrates. Electronically Signed: Abelardo Villaseñor DO at 23:23 EDT Tel [phone], Service support , Discharge Plan Triage Chief Complaint: Cough ED Provider: Flex Valdovinos Dx/Rx/DC Orders Clinical Impression: Major hemoptysis Prescriptions: No Action multivitamin Tablet 1 tab PO DAILY RF: 0 amlodipine 10 mg tablet 10 mg PO DAILY Qty: 90 RF: 3 carvedilol 12.5 mg tablet 12.5 mg PO BID Qty: 180 RF: 3 valsartan 320 mg tablet 320 mg PO DAILY Qty: 90 RF: 3 atorvastatin 20 mg tablet 20 mg PO QHS Qty: 90 RF: 3 trazodone 50 MG tablet 50 mg PO QHS RF: 0 aspirin 81 MG tablet,chewable 81 mg PO DAILY RF: 0 fluticasone propionate 1 SPRAY spray,suspension 1 spray NASAL DAILY PRN (Reason: Congestion) RF: 0 loratadine 10 MG tablet 10 mg PO DAILY RF: 0 Primary Care Provider: Lincoln Bello NP Referrals: Lincoln Bello TRUCK DRIVER SALESPERSON, TRUCK DRIVER SALESPERSON-C [Primary Care Provider] - Disposition Disposition: Acute Care Hospital Discharge Location: [facility] Discharge Date/Time: 11/24/20 01:51
[2020-11-23 23:28] LABS: Absolute Lymphocyte Count 1.69 X10^3/uL (0.83-4.51); Absolute Neutrophil Count 6.7 X10^3/uL (2.0-7.7); Basophil# 0.09 X10^3/uL; Basophil% 0.9 % (0-1); Eosinophil# 0.33 X10^3/uL; Eosinophils% 3.4 % (0-5); Hematocrit 34.6 % (40-54); Lymphocyte # 1.69 X10^3/ul (0.83-4.51); Lymphocyte % 17.5 % (19-41); Mean Corp Hgb Conc 31.8 g/dL (32-36); Mean Corpuscular Volume 94.3 fL (80-94); Mean Platelet Vol. 9.5 fl (6.2-12.0); Monocyte% 7.2 % (0-10); NRBC Flagged by Analyzer 0 % (0-5); Neutrophil % 69.4 % (47-70); Platelet Count 527 K/mm3 (150-450); RBC Distribution Width CV 12.3 % (11.6-14.6); RBC Distribution Width SD 42.6 fl (35.1-43.9); Red Blood Count 3.67 M/mm3 (4.6-6.2); White Blood Count 9.7 K/mm3 (4.4-11.0)
[2020-11-23 23:47] LABS: Anion Gap 6 (5-15); BUN 19 mg/dL (7-18); BUN/Creat Ratio 15.7 RATIO (10-20); Calcium,Total 9.2 mg/dL (8.5-10.1); Chloride 99 mmol/L (98-107); Creatinine, Serum 1.21 mg/dL (0.70-1.30); EST Glomerular Filtration Rate 66 mL/min (>60); Est Glom Filt Rate - Afr Amer 80 mL/min (>60); Estimated Creatinine Clearance 71.22 ml/min; Glucose 104 mg/dL (74-106); Potassium 4.6 mmol/L (3.5-5.1); Sodium Level 133 mmol/L (136-145)
[2020-11-24 01:17] VITALS: BP 150/83; PULSE 75; RESP 16; O2SAT 97
[2020-11-24 01:18] VITALS: BP 150/83; PULSE 71; RESP 16; O2SAT 97
== END 2020-11-24 01:51 | disposition short-term general hospital (02) ==
PROVIDERS: Emergency Provider Emergency Medicine; PCP Nurse Practitioner Primary Care
DX: R04.2 Hemoptysis (principal); I10 Essential (primary) hypertension; E78.5 Hyperlipidemia, unspecified; Z79.82 Long term (current) use of aspirin; Z87.891 Personal history of nicotine dependence
CPT/HCPCS: 71046; 80048; 85025; 99285; A4216

== ENCOUNTER 2020-12-26 10:31 | Day surgery (SDC) | payer OTHER, SELFPAY ==
[2020-12-19 09:09] VITALS: BMI 28.1
[2020-12-26] VITALS (7 sets, daily range): BP systolic 91–134; BP diastolic 70–86; PULSE 84–107; RESP 16–18; TEMP 36.6–37; O2SAT 91–98; BMI 28.4
--- NOTE | 2020-12-26 10:59 | HP.PCM_ITS ---
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 Is patient in pain?: No Allergies BEE STINGS Allergy (Uncoded 12/19/20 09:08) Anaphylaxis Medications trazodone 50 mg PO QHS 03/28/19 [History Confirmed 12/19/20] fluticasone propionate 1 spray NASAL DAILY PRN 09/09/20 [History Confirmed 12/19/20] loratadine 10 mg PO DAILY 09/09/20 [History Confirmed 12/19/20] amlodipine 10 mg tablet 10 mg PO DAILY #90 tab 10/10/20 [Rx Confirmed 12/19/20] atorvastatin 20 mg tablet 20 mg PO QHS #90 tab 10/10/20 [Rx Confirmed 12/19/20] multivitamin 1 tab PO DAILY 10/10/20 [History Confirmed 12/19/20] acetaminophen 500 mg tablet 500 mg PO Q6H PRN 12/02/20 [History Confirmed 12/19/20] albuterol sulfate 90 mcg/actuation aerosol inhaler 2 puff INHALATION Q6H PRN 12/02/20 [History Confirmed 12/19/20] amoxicillin 500 mg capsule 500 mg PO BID 12/02/20 [History Confirmed 12/19/20] benzonatate 100 mg capsule 100 mg PO TID PRN #30 cap 12/02/20 [Rx Confirmed 12/19/20] fluticasone propionate 45 mcg-salmeterol 21 mcg/actuation HFA inhaler 2 puff INHALATION BID 12/02/20 [History Confirmed 12/19/20] omeprazole 40 mg capsule,delayed release 40 mg PO DAILY 12/02/20 [History Confirmed 12/19/20] oxycodone 5 mg capsule 5 mg PO Q6H PRN 12/02/20 [History Confirmed 12/19/20] MAGIC MOUTH WASH (BMX) 180 mL suspension 15 ml PO .qid PRN #180 ml 12/10/20 [Rx Confirmed 12/19/20] escitalopram oxalate 10 mg tablet 10 mg PO DAILY 12/17/20 [History Confirmed 12/19/20] PFSH Medical History Abnormal cardiac enzyme level Essential hypertension HLD (hyperlipidemia) Surgical History History of left heart catheterization (LHC) (~09/09/20) Family History Mother Diabetes Hypertension Hyperlipidemia Heart disease Brother Diabetes Brother Cancer Sister Cancer Father Parkinson disease Social History adopted: No household members: children current occupational status: employed 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[employer] Smoking Status: Former smoker Tobacco: How many years used: 25 how long ago did patient quit smokin years ago second hand exposure: No alcohol intake: current alcohol intake frequency: a few times a month Alcohol type: beer substance use type: does not use caffeine: Yes Type: carbonated beverages and coffee Number of servings: 2 do you feel safe at home: Yes HPI HPI HPI: GRECIA LUIS, is a 55 M who presents to the office today for port placement. 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 Patient initially diagnosed due to hemoptysis. Patient has completed initial radiation. Planning for chemotherapy. Patient is on 1 L nasal cannula at home. ROS General General: No weight change, appetite, fatigue, colon cancer, breast cancer or weakness HEENT HEENT: No difficulty swallowing, eye injury, eye surgery, swollen glands or hoarseness Endo Endocrine: No thyroid disease, diabetes mellitus, thyroid cancer, Hair loss, heat intolerance or cold intolerance Skin Skin: No rash or changing moles Musc Musculoskeletal: No back problems, arthritis, rheumatoid arthritis, gout or joint pain Cardio Cardiovascular: Yes heart disease and high blood pressure; No murmur, pacemaker, atrial fibrillation, heart attack, heart stent, palpitations, shortness of breat with exertion or chest pain Psych Psychiatric: Yes anxiety; No depression or hearing voices Resp Respiratory: No shortness of breath, No sleep apnea, Yes cough, Yes COPD, No asthma, No emphysema and No wheezing Gastro Gastrointestinal: No abdominal pain, No nausea or vomiting, No diarrhea, No constipation, No blood in stool, Yes acid reflux, No hemorrhoids, No ulcers, No gallbladder problem and No black,tarry stools Favio Hematologic: No blood thinners, No blood disorders, No bleeding, No anemia and No blood clots Neuro Neurologic: No weakness Exam Const General: cooperative, healthy appearing, comfortable and no acute distress Neck Neck: normal visual inspection and supple Chest Other: Normal palpation of bilateral upper chest Resp Effort & Inspection: normal respiratory effort Cardio Rate: regular rate GI Inspection: non-distended Palpation: soft Skin General: no rashes or lesions noted Neuro General: patient oriented x3 Psych Affect: normal affect Assessment and Plan Assessment and Plan (1) Encounter for insertion of venous access port: Status: Acute (2) NSCLC metastatic to bone: Status: Acute Comment: NSCLC adenocarcinoma type Stage IV clinical stage IVB (cT4 cN2 M1c) bone. No actionable molecular marker. Discussed disease status, treatment option of chemotherapy. Pt agrees to proceed. Suggested therapy with Alimta and Cisplatin every 3 weeks. Pt agrees.. Plan - Dr. Yeimi Boland MD: I have discussed above with the patient- Port-a-Cath placement. Right possible left Patient has been counseled as to the risks/benefits of the procedure. I have explained the risks of the surgery, including but not limited to: infection, bleeding, injury to any blood vessels/nerves, injury to lungs (such as pneumothorax or hemothorax and need for chest tube), not having any access, non functioning of port due to thrombosis, infection of port, etc. the patient understands and agrees to proceed. I have answered all the patient's questions to the patient?s satisfaction and the patient has no further questions. Yeimi Boland M.D. Pager: [phone] [facility] [address] [place] [address], [facility], [address] [place] [address] Office: [phone] Coding Level of Care Code Off vis,new,level 3 Diagnoses Encounter for insertion of venous access port Z45.2 NSCLC metastatic to bone C34.90; C79.51 12/19/20 0929<Electronically signed by Yeimi Robotham MD>Date [facility]
[2020-12-26] MEDS: Lactated Ringers 1,000 ML 100 ML IV (11:22)
[2020-12-26] MEDS: Cefazolin 2 GM in 0.9% Normal Saline 100 ML IV (12:08)
[2020-12-26] MEDS: Lidocaine 1% /Epi 1:100 (20ml) 20 ML Vial (12:37)
[2020-12-26] MEDS: Bupivacaine Mpf 0.5% 30 ML VIAL (12:38)
--- NOTE | 2020-12-26 12:48 | PCM.OPRPT ---
Report of Operation Date of Procedure: 12/26/20 Pre-Operative Diagnosis: z45.2, lung cancer Post-Operative Diagnosis: same Surgery/Procedure Performed:: 1. Placement of right IJ Port-A-Cath 2. Use of fluoroscopy 3. Use of ultrasound Surgeon: Yeimi Boland Type of Anesthesia: MAC/Supplemental Anesthesiologist: Jerry Jenkins Special Medications: Ancef 2 g IV x1 Estimated Blood Loss (mL): < 10 cc Fluids Replaced: Per anesthesia Description of Procedure: After informed consent was given, the patient was brought to the operating room and placed in the supine position. Appropriate time out protocol was followed. Patient was then given IV conscious sedation for anesthesia. The patient's right upper chest and neck were then prepped with a surgical skin preparation and sterile surgical drapes were placed. After proper landmarks were ascertained, the skin at the upper right chest area was then infiltrated with 1:1 mixture of 1% lidocaine with epinephrine and 0.5% marcaine. A needle trocar was then inserted into the right internal jugular vein with ultrasound guidance-multiple vessels were viewed with u/s and the right IJ was chosen-- and there was good aspiration of venous blood. A wire was then threaded into the needle trocar and this was visualized under fluoroscopy to ensure that the wire was in the superior vena cava. Once this was done, then the needle trocar was removed. A small skin ernestina was made with an 11 blade knife at the wire entrance site. The dilator with the introducer sheath attached was then placed over the wire into the right internal jugular vein via the Seldinger technique and this was visualized under fluoroscopy. The dilator and sheath were in proper position as visualized by fluoroscopy. A subcutaneous pocket was then created caudad to the catheter insertion site. A transverse skin incision was made after the skin and subcutaneous tissues were infiltrated with local anesthetic. Blunt dissection was then used to create a space large enough for placement of the subcutaneous port. The catheter was then tunneled into the subcutaneous pocket. The wire and dilator were then removed. The catheter was then threaded into the introducer sheath and was positioned with its tip at the junction of the superior vena cava and the right atrium as visualized under fluoroscopy. The excess catheter was transected. The catheter was then attached to the subcutaneous port using manufacturers guidelines. The catheter was flushed with a heparin saline mixture prior to placement. Hemostasis was carefully controlled with electrocautery. The port was sutured to the subcutaneous fascia using 2-0 Vicryl suture at two sites. The port was then placed in the subcutaneous pocket. The incision were reapproximated with interrupted subdermal 3-0 vicryl sutures. The skin was reapproximated with 3-0 nylon suture in a interrupted fashion. Steristrips were used for reinforcement of the skin closure at IJ insertion site and a sterile opsite dressings were applied. The patient tolerated the procedure well. Implants Used: Bard PowerPort isp M.R.I. 6Fr Lot [id number] Grafts/Implants Used: [employer] PowerPort isp M.R.I. 6Fr Lot [id number] Complications none
--- NOTE | 2020-12-26 12:53 | EX.PCM.DISCH ---
Discharge Instructions Procedure Port-A-Cath Diet Discharge Diet: Light diet - advance as tolerated Activity May shower in (days): 5 (Keep port site clean and dry x5 days. Neck incision okay to get wet after 1 day. Okay to lower shower and upper sponge bath. OR okay to taper off port site with a Ziploc bag to shower) Lifting Restrictions: No lifting > 15 pounds for 3 days with the arm on the side of the port Dressing / Incision Call your doctor if your incision/area has: Continuous Slow Oozing, Sudden Increased Bleeding, Increased Pain/ Swelling, Increased Redness, Foul Smelling Discharge and Swelling at the incision site Call your doctor if you observe: Fever of 101 or Higher Change Dressing in: 2 days Follow Up Care Please Follow Up With: Yeimi Boland MD When: In 10 days for permanent suture removal?call office for appointment Test Results: Test results from this visit will be discussed in further detail at your follow-up appointment, if applicable. Discharge Plan Admission Attending Provider: Yeimi Boland Primary Care Provider: Lincoln Bello NP Discharge Orders/Prescriptions Prescriptions: New oxycodone-acetaminophen 5-325 mg tablet 1 tab PO Q6H PRN (Reason: pain) 3 Days Qty: 5 RF: 0 Continued multivitamin Tablet 1 tab PO DAILY RF: 0 omeprazole 40 mg capsule,delayed release(DR/EC) 40 mg PO DAILY RF: 0 oxycodone 5 mg capsule 5 mg PO Q6H RF: 0 acetaminophen [Tylenol Extra Strength] 500 mg tablet 500 mg PO Q6H PRN (Reason: Pain) RF: 0 albuterol sulfate 90 mcg/actuation HFA aerosol inhaler 2 puff inhalation Q6H PRN (Reason: Wheezing) RF: 0 Advair HFA 45-21 mcg/actuation HFA aerosol inhaler 2 puff inhalation BID RF: 0 escitalopram oxalate 10 mg tablet 10 mg PO DAILY RF: 0 MAGIC MOUTH WASH (BMX) 180 mL suspension 15 ml PO .qid PRN (Reason: pain) Qty: 180 RF: 5 trazodone 50 MG tablet 50 mg PO QHS RF: 0 fluticasone propionate 1 SPRAY spray,suspension 1 spray NASAL DAILY PRN (Reason: Congestion) RF: 0 loratadine 10 MG tablet 10 mg PO DAILY RF: 0 folic acid 1 mg Tablet 1 mg PO DAILY Qty: 90 RF: 3 atorvastatin 20 mg tablet 20 mg PO DAILY RF: 0 amlodipine 10 mg tablet 10 mg PO DAILY RF: 0 Referrals / Follow Up: Lincoln Bello NP, RISK CONSULTANT-C [Primary Care Provider] - Disposition Disposition (needs filled in before D/C Order can be placed): Home, Self Care
--- NOTE | 2020-12-26 13:04 | RAD_ITS ---
History: port -- pacu EXAMINATION/TECHNIQUE: XR Chest 1 View: Portable COMPARISON: November 23, 2020 FINDINGS: LINES/DEVICES: None. LUNGS: Improving airspace opacification of the left lung. Persistent interstitial thickening of both lungs. No pneumothorax. MEDIASTINUM AND CARDIOVASCULAR STRUCTURES: Cardiac silhouette not enlarged. Central airways and mediastinal contour are unremarkable. BONES AND SOFT TISSUES: Unremarkable. RAD/CXR for Line Placement IMPRESSION: Improving left pneumonia/pulmonary edema. Bilateral interstitial thickening which may represent acute or chronic inflammatory change at 1346 Reported and signed by: Yoan Townsend MD Electronically Signed: Yoan Townsend MD at 13:45 EDT Tel , Service support ,
== END 2020-12-26 14:19 | disposition home or self-care (01) ==
LOC: SDC 10:32 → AC 10:33
PROVIDERS: PCP Nurse Practitioner Primary Care; Visit Provider Surgery
PROC: (CPT 36561; principal; 2020-12-26 12:05)
DX: Z45.2 Encounter for adjustment and management of vascular access device (principal); C34.90 Malignant neoplasm of unspecified part of unspecified bronchus or lung; C79.51 Secondary malignant neoplasm of bone; J44.9 Chronic obstructive pulmonary disease, unspecified; I25.10 Atherosclerotic heart disease of native coronary artery without angina pectoris; I10 Essential (primary) hypertension; E78.5 Hyperlipidemia, unspecified; K21.9 Gastro-esophageal reflux disease without esophagitis; Z79.899 Other long term (current) drug therapy; Z87.891 Personal history of nicotine dependence; Z99.81 Dependence on supplemental oxygen; Z79.51 Long term (current) use of inhaled steroids
CPT/HCPCS: 00532; 36561; 76937; 71045; 77001; J7120

== ENCOUNTER 2020-12-30 03:00 | Emergency (ER) | payer OTHER, SELFPAY ==
[2020-12-26 10:55] VITALS: BMI 28.4
[2020-12-30 03:01] VITALS: BP 166/90; PULSE 124; RESP 22; TEMP 36.6; O2SAT 87; BMI 29.9
[2020-12-30 03:05] VITALS: O2SAT 93
--- NOTE | 2020-12-30 03:23 | RAD_ITS ---
STUDY: X-RAY CHEST REASON FOR EXAM: Male, 55 years old. Hemoptysis TECHNIQUE: Single frontal view of the chest. COMPARISON: 12/26/2020. FINDINGS: RIGHT chest Port-A-Cath tip projects over the SVC. EKG leads artifacts. Low lung volumes. No pneumothorax. LEFT pleural effusion. Increased interstitial markings. More prominent compared to prior study. Pulmonary vascular congestion. Bilateral basilar atelectasis/infiltrate increased on the RIGHT. Emphysematous/chronic lung changes. Normal size heart. Aortic calcifications. There are diffuse degenerative changes of the visualized thoracic spine. There is degenerative osteoarthritis of the bilateral shoulders. There is no demonstrated abnormality of the visualized soft tissue structures of the upper abdomen. RAD/Chest 1 View (Portable) IMPRESSION: Increasing bilateral basilar atelectasis/infiltrate on the RIGHT. Similar appearance on the LEFT. Increasing Pulmonary markings which may represent edema and/or infectious inflammatory process. Recommend follow-up imaging to resolution to exclude neoplastic process.. LEFT pleural effusion. Electronically Signed: Aidan Rosas MD at 3:52 EDT Tel , Service support ,
--- NOTE | 2020-12-30 03:51 | ED.VIS.DYS ---
HPI History of Present Illness Chief Complaint: Cough Informant: patient Narrative Narrative: Patient is a 55-year-old male with a past medical history of non-small cell lung cancer who presents to the emergency department for hemoptysis. His symptoms have been present over the past couple of hours. Patient states he is coughed up about a cup of blood. He has required intubation approximately 1 month ago for hemoptysis. He feels like the last episode was worse than this episode. He is at his baseline shortness of breath. He denies any chest pain. He does wear supplemental oxygen at baseline and has not required more. He denies any fevers or chills. He is not on any blood thinning medications. Patient states he is undergoing radiation treatment for his cancer. [facility] Medical History (Updated 12/30/20 @ 22:[address] Michael Turner, ) Abnormal cardiac enzyme level Anxiety Cancer Cardiology follow-up encounter Chews loose leaf tobacco Chronic cough COPD (chronic obstructive pulmonary disease) Essential hypertension Gastric reflux History of echocardiogram History of radiation therapy HLD (hyperlipidemia) On home oxygen therapy Poor dentition Umbilical hernia Home Medications trazodone 50 mg PO QHS 03/28/19 [History Last Taken 09/08/20] fluticasone propionate 1 spray NASAL DAILY PRN 09/09/20 [History Last Taken 12/26/20 09:00 1 SPRAY] loratadine 10 mg PO DAILY 09/09/20 [History Last Taken 09/08/20] multivitamin 1 tab PO DAILY 10/10/20 [History Last Taken Unknown] acetaminophen 500 mg tablet 500 mg PO Q6H PRN 12/02/20 [History Last Taken Unknown] albuterol sulfate 90 mcg/actuation aerosol inhaler 2 puff INHALATION Q6H PRN 12/02/20 [History Last Taken 12/26/20 09:00 2 puff] fluticasone propionate 45 mcg-salmeterol 21 mcg/actuation HFA inhaler 2 puff INHALATION BID 12/02/20 [History Last Taken Unknown] omeprazole 40 mg capsule,delayed release 40 mg PO DAILY 12/02/20 [History Last Taken 12/26/20 09:00 40 mg] oxycodone 5 mg capsule 5 mg PO Q6H 12/02/20 [History Last Taken 12/26/20 09:00 5 mg] MAGIC MOUTH WASH (BMX) 180 mL suspension 15 ml PO .qid PRN #180 ml 12/10/20 [Rx Last Taken Unknown] escitalopram oxalate 10 mg tablet 10 mg PO DAILY 12/17/20 [History Last Taken Unknown] amlodipine 10 mg PO DAILY 12/22/20 [History Last Taken 12/26/20 09:00 10 MG] atorvastatin 20 mg PO DAILY 12/22/20 [History Last Taken Unknown] folic acid 1 mg PO DAILY #90 tab 12/26/20 [Rx Last Taken Unknown] oxycodone-acetaminophen 1 tab PO Q6H PRN 3 Days #5 tab 12/26/20 [Rx Last Taken Unknown] Allergy/AdvReac Type Severity Reaction Status Date / Time BEE STINGS Allergy Anaphylaxis Uncoded 12/30/20 03:05 Family History Mother Diabetes Hypertension Hyperlipidemia Heart disease Brother Diabetes Brother Cancer Sister Cancer Father Parkinson disease Surgical History History of left heart catheterization (LHC) (~09/09/20) History of surgery History of wisdom tooth extraction Social History adopted: No household members: children current occupational status: employed 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[employer] Smoking Status: Former smoker Tobacco: How many years used: 25 how long ago did patient quit smokin years ago second hand exposure: No alcohol intake: current alcohol intake frequency: a few times a month Alcohol type: beer substance use type: does not use caffeine: Yes Type: carbonated beverages and coffee Number of servings: 2 do you feel safe at home: Yes ROS ROS ED Constitutional Constitutional ED: Denies chills or fever(s) Eyes Eyes: Denies change in vision ENT ENT ED: Denies epistaxis or rhinorrhea Cardiovascular Cardiovascular: Denies chest pain Respiratory/Chest Respiratory/Chest: Reports cough, sputum and other Details: Hemoptysis Gastrointestinal Gastrointestinal: Denies abdominal pain, diarrhea, nausea or vomiting Musculoskeletal Musculoskeletal: Denies back pain or neck pain Integumentary Denies rash Neurologic Neurologic: Denies dizziness, headache(s) or weakness EXAM Physical Exam Const Vital Signs: 12/30/20 03:01 12/30/20 03:05 12/30/20 05:52 Temperature 98 F Temperature Source Temporal Pulse Rate 124 H 120 H Respiratory Rate 22 H 22 H Respiratory Effort Short of Breath Respiratory Pattern Tachypnea Blood Pressure 166/90 H 143/97 H Blood Pressure Mean 115 112 Pulse Ox 87 93 95 Oxygen Delivery Method Room Air Nasal Cannula Nasal Cannula Oxygen Flow Rate (L/min) 1 4 12/30/20 07:24 Temperature Temperature Source Pulse Rate 87 Respiratory Rate 14 Respiratory Effort Respiratory Pattern Blood Pressure 152/87 H Blood Pressure Mean 108 Pulse Ox 97 Oxygen Delivery Method Oxygen Flow Rate (L/min) Positive well nourished and well developed General Appearance ED: well developed and NAD HEENT Reports normocephalic, head/scalp atraumatic and moist mucous membranes Eyes PERRL and EOMs intact bilaterally Neck no lymphadenopathy and supple General: Negative for tenderness Chest Wall inspection of chest normal Resp normal respiratory effort Resp Narrative: Decreased breath sounds on the right Auscultation: Negative for rales, rhonchi or wheezes Cardio regular rhythm and no murmurs Rate: tachycardic GI normal to inspection, nondistended, normoactive bowel sounds and non-tender Palpation: soft; Negative for guarding or rebound tenderness present Extremity normal to inspection General Extremety ED: Negative for edema or tenderness General Extremity: Negative for edema Neuro oriented x3, CN's II-XII intact bilaterally and no sensory deficits noted Sensorium / Orientation: alert Motor Exam: strength 5/5 throughout Psych mental status grossly normal Skin no rashes or lesions noted MDM MDM MDM Narrative Medical decision making narrative: Patient presents to the emergency department for hemoptysis. He does have known stage IV lung cancer. On arrival to the ED he is hypertensive, tachycardic, mildly tachypneic, satting 93% on his baseline oxygen. X-ray ordered immediately as well as basic lab work. [facility] consulted at that time. They did accept the patient to the emergency department. At this time patient protecting his airway. He feels like his symptoms are starting to improve. He does have a emesis basin that is mostly filled with water but does have some blood in it. This is a small amount. Patient's lab work did show his hemoglobin to be slightly decreased from previous lab work-up. His white blood cell count is normal. No significant electrolyte abnormality. His troponin is mildly high. No elevation of coagulation test. Patient given a dose of IV TXA. Since transfer was delayed we did order a CT scan of the chest. This showed potential superimposed pneumonia although he has not had any infectious symptoms including any fever/chills, body aches. He has not really had a cough until the hemoptysis started. He has remained stable throughout ED stay. He will be transferred at this time. Lab Data Labs: Laboratory Results - last 24 hr 12/30/20 12/30/20 12/30/20 03:52 03:52 03:52 WBC 7.0 RBC 3.69 L Hgb 10.7 L Hct 33.5 L MCV 90.8 MCH 29.0 MCHC 31.9 L RDW Std Deviation 43.6 RDW Coeff of Asiya 13.2 Plt Count 329 MPV 9.4 Immature Gran % (Auto) 0.700 Neut % (Auto) 77.3 H Lymph % (Auto) 10.4 L Blackford % (Auto) 8.3 Eos % (Auto) 2.6 Baso % (Auto) 0.7 Absolute Neuts (auto) 5.4 Absolute Lymphs (auto) 0.73 L Nucleated RBC % 0 PT 12.9 INR 1.0 APTT 30.3 Sodium 135 L Potassium 4.1 Chloride 102 Carbon Dioxide 26.0 Anion Gap 7 BUN 16 Creatinine 0.66 L Estim Creat Clear Calc 130.58 Est GFR (MDRD) Af Amer 160 Est GFR (MDRD) Non-Af 132 BUN/Creatinine Ratio 24.1 H Glucose 118 H Calcium 8.7 Total Bilirubin 0.40 AST 21 ALT 25 Alkaline Phosphatase 104 Troponin I High Sens 173.7 H* Total Protein 7.3 Albumin 3.3 Globulin 4.0 Albumin/Globulin Ratio 0.8 L Radiography Diagnostic Testing: Radiology Impression Chest X-Ray 12/30/20 03:23 IMPRESSION: Increasing bilateral basilar atelectasis/infiltrate on the RIGHT. Similar appearance on the LEFT. Increasing Pulmonary markings which may represent edema and/or infectious inflammatory process. Recommend follow-up imaging to resolution to exclude neoplastic process.. LEFT pleural effusion. Electronically Signed: Aidan Rosas MD at 3:52 EDT Tel , Service support , Chest CTA 12/30/20 04:30 IMPRESSION: Persistent infiltrative masslike density within the left hilum encasing the left peribronchial structures suspicious for neoplasm. Left effusion. Scattered groundglass opacity in the lung which may represent superimposed pneumonia. This is superimposed on underlying chronic lung disease pulmonary emphysema. Mild cardiomegaly coronary artery disease. Electronically Signed: Helen Rowley MD at 7:24 EDT Tel , Service support , Discharge Plan Triage Chief Complaint: Cough ED Provider: Michael Turner Dx/Rx/DC Orders Clinical Impression: Hemoptysis, Lung mass, Anemia Prescriptions: No Action multivitamin Tablet 1 tab PO DAILY RF: 0 omeprazole 40 mg capsule,delayed release(DR/EC) 40 mg PO DAILY RF: 0 oxycodone 5 mg capsule 5 mg PO Q6H RF: 0 acetaminophen [Tylenol Extra Strength] 500 mg tablet 500 mg PO Q6H PRN (Reason: Pain) RF: 0 albuterol sulfate 90 mcg/actuation HFA aerosol inhaler 2 puff inhalation Q6H PRN (Reason: Wheezing) RF: 0 Advair HFA 45-21 mcg/actuation HFA aerosol inhaler 2 puff inhalation BID RF: 0 escitalopram oxalate 10 mg tablet 10 mg PO DAILY RF: 0 MAGIC MOUTH WASH (BMX) 180 mL suspension 15 ml PO .qid PRN (Reason: pain) Qty: 180 RF: 5 trazodone 50 MG tablet 50 mg PO QHS RF: 0 fluticasone propionate 1 SPRAY spray,suspension 1 spray NASAL DAILY PRN (Reason: Congestion) RF: 0 loratadine 10 MG tablet 10 mg PO DAILY RF: 0 folic acid 1 mg Tablet 1 mg PO DAILY Qty: 90 RF: 3 atorvastatin 20 mg tablet 20 mg PO DAILY RF: 0 amlodipine 10 mg tablet 10 mg PO DAILY RF: 0 oxycodone-acetaminophen 5-325 mg tablet 1 tab PO Q6H PRN (Reason: pain) 3 Days Qty: 5 RF: 0 Primary Care Provider: Lincoln Bello NP Referrals: Lincoln Bello NP, RADIAGRAPH OPERATOR-C [Primary Care Provider] - Disposition Disposition: Acute Care Hospital Discharge Location: [facility] Discharge Date/Time: 12/30/20 07:26
[2020-12-30] MEDS: 0.9% Normal Saline 1,000 ML 1000 ML IV (04:11)
[2020-12-30] MEDS: Ondansetron 4 MG/2 ML Vial IV (04:12)
[2020-12-30] MEDS: Morphine 4 MG/ML Syringe IV (04:13)
--- NOTE | 2020-12-30 04:30 | CT_ITS ---
STUDY: CTA CHEST REASON FOR EXAM: Male, 55 years old. Hemoptysis with known non-small cell lung cancer RADIATION DOSAGE (If Supplied By Facility): CTDIvol = ( 14.39 ) mGy, DLP = ( 504.82 ) mGycm TECHNIQUE: The examination was performed with the intravenous administration of IV 100mL Isovue-[id number]. Post-processing of the angiographic images was performed, with multiplanar reformation and 3D reconstruction. Individualized dose optimization techniques were used for this CT. COMPARISON: November 15, 2020 CT scan chest FINDINGS: Normal enhancement of the main pulmonary artery and right and left pulmonary arteries. Normal enhancement of the bilateral peripheral pulmonary arteries. There is no demonstrated pulmonary embolism. There is atherosclerotic tortuosity of the aortic arch and descending thoracic aorta. There is no demonstrated aortic dissection. There is borderline cardiac enlargement or coronary calcifications. Again noted is a left side. Mediastinal hilar masslike density encasing the left hilum extending into the left lower lobe. There is a carotid encased appearance of the left hilum. Normal visualized trachea. There are scattered emphysematous blebs throughout the lungs. There are scattered areas of groundglass opacity. There is a small left pleural effusion. Groundglass opacities are worse when compared to prior study. The left perihilar masslike consolidation or infiltration is similar. There is a small left pleural effusion. Normal chest wall structures. There is kyphosis. There is degenerative change in the thoracolumbar spine. Normal visualized upper abdomen. CT/CTA Chest W/WO Contrast IMPRESSION: Persistent infiltrative masslike density within the left hilum encasing the left peribronchial structures suspicious for neoplasm. Left effusion. Scattered groundglass opacity in the lung which may represent superimposed pneumonia. This is superimposed on underlying chronic lung disease pulmonary emphysema. Mild cardiomegaly coronary artery disease. Electronically Signed: Helen Rowley MD at 7:24 EDT Tel , Service support ,
[2020-12-30 04:37] LABS: Absolute Lymphocyte Count 0.73 X10^3/uL (0.83-4.51); Absolute Neutrophil Count 5.4 X10^3/uL (2.0-7.7); Basophil# 0.05 X10^3/uL; Basophil% 0.7 % (0-1); Eosinophil# 0.18 X10^3/uL; Eosinophils% 2.6 % (0-5); Hematocrit 33.5 % (40-54); Hemoglobin 10.7 g/dL (13.0-16.5); Lymphocyte # 0.73 X10^3/ul (0.83-4.51); Lymphocyte % 10.4 % (19-41); Mean Corp Hgb Conc 31.9 g/dL (32-36); Mean Corpuscular Volume 90.8 fL (80-94); Mean Platelet Vol. 9.4 fl (6.2-12.0); Monocyte# 0.58 X10^3/uL; Monocyte% 8.3 % (0-10); NRBC Flagged by Analyzer 0 % (0-5); Neutrophil # 5.43 X10^3/uL (2.7-7.7); Neutrophil % 77.3 % (47-70); Platelet Count 329 K/mm3 (150-450); RBC Distribution Width CV 13.2 % (11.6-14.6); RBC Distribution Width SD 43.6 fl (35.1-43.9); Red Blood Count 3.69 M/mm3 (4.6-6.2)
[2020-12-30 04:41] LABS: Prothrombin Time (Protime)PT. 12.9 SECONDS (11.7-14.9)
[2020-12-30 04:42] LABS: Partial Thromboplast Time 30.3 Seconds (24.1-36.2)
[2020-12-30 04:53] LABS: ALB/GLOB Ratio 0.8 RATIO (0.9-2.4); AST(SGOT) 21 U/L (15-37); Alanine Aminotransfer ALT/SGPT 25 U/L (16-61); Albumin, Serum 3.3 g/dL (3.2-5.0); Alkaline Phosphatase 104 U/L (45-117); Anion Gap 7 (5-15); BUN 16 mg/dL (7-18); BUN/Creat Ratio 24.1 RATIO (10-20); Calcium,Total 8.7 mg/dL (8.5-10.1); Chloride 102 mmol/L (98-107); Creatinine, Serum 0.66 mg/dL (0.70-1.30); EST Glomerular Filtration Rate 132 mL/min (>60); Est Glom Filt Rate - Afr Amer 160 mL/min (>60); Estimated Creatinine Clearance 130.58 ml/min; Glucose 118 mg/dL (74-106); Potassium 4.1 mmol/L (3.5-5.1); Protein, Total 7.3 g/dL (6.4-8.2); Sodium Level 135 mmol/L (136-145); Troponin-I HS 173.7 pg/mL (3.0-78.5)
[2020-12-30] MEDS: HYDROmorphone 0.5 MG/0.5 ML SYRINGE IV ×2 (05:00→07:21)
[2020-12-30 05:52] VITALS: BP 143/97; PULSE 120; RESP 22; O2SAT 95
[2020-12-30 07:24] VITALS: BP 152/87; PULSE 87; RESP 14; O2SAT 97
== END 2020-12-30 07:26 | disposition short-term general hospital (02) ==
PROVIDERS: Emergency Provider Emergency Medicine; PCP Nurse Practitioner Primary Care
DX: R04.2 Hemoptysis (principal); C34.90 Malignant neoplasm of unspecified part of unspecified bronchus or lung; Z20.822 Contact with and (suspected) exposure to COVID-19; R00.0 Tachycardia, unspecified; R06.82 Tachypnea, not elsewhere classified; D64.9 Anemia, unspecified; J44.9 Chronic obstructive pulmonary disease, unspecified; I10 Essential (primary) hypertension; K21.9 Gastro-esophageal reflux disease without esophagitis; E78.5 Hyperlipidemia, unspecified; F41.9 Anxiety disorder, unspecified; Z99.81 Dependence on supplemental oxygen; Z79.51 Long term (current) use of inhaled steroids; Z79.899 Other long term (current) drug therapy; Z92.3 Personal history of irradiation; Z87.891 Personal history of nicotine dependence
CPT/HCPCS: 71045; 71275; 80053; 84484; 85025; 85610; 85730; 87426; 96361; 96365; 96375; 96376; 99285; J7030; Q9967; A4216; J2405